=== PATIENT | male | born 1970 | race Hispanic/Latino ===

== ENCOUNTER 2018-01-03 22:55 | Inpatient (IN) | payer MEDICARE ==
[2018-01-04] MEDS ORDERED: Ondansetron HCl/PF 4 MG/2 ML Vial ONE (00:40)
[2018-01-04 00:52] LABS: #Eosinphils 0.2 thou/uL (0.0-0.7); #Lymphocytes 1.3 thou/uL (1.20-3.40); #Monocytes 0.6 thou/uL (0.11-0.59); #Neutrophils 9.1 thou/uL (1.40-6.50); %Basophils 0.4 % (0.0-1.0); %Eosinophils 1.7 % (0.0-10.0); %Lymphocytes 11.8 % (21.0-51.0); %Monocytes 5.4 % (0.0-10.0); %Neutrophils 80.8 % (42.0-75.0); Hemoglobin 17.9 g/dL (14.0-18.0); Mean Corpuscular HGB CONC 33.8 g/dL (32.0-36.0); Mean Corpuscular Hemoglobin 31.2 pg (27.0-31.0); Mean Corpuscular Volume 92.3 fl (80.0-94.0); Mean Platelet Volume 8.3 fL (7.4-10.4); Platelet Count 123 thou/uL (130-400); Red Blood Cell (RBC) Count 5.75 mill/uL (4.70-6.10); White Blood Cell (WBC) Count 11.3 thou/uL (4.8-10.8)
[2018-01-04 01:00] LABS: ALT (SGPT) 41 U/L (8-55); AST (SGOT) 28 U/L (5-34); Albumin 3.5 g/dL (3.5-5.0); Alkaline Phosphatase 80 U/L (40-150); Anion Gap 14 mmol/L (10-20); BUN (Urea Nitrogen) 26 mg/dL (8.9-20.6); Bilirubin, Total 0.4 mg/dL (0.2-1.2); Calc. Creatinine Clearance 0 mL/min (70-130); Calcium 9.5 mg/dL (7.8-10.44); Carbon Dioxide 23 mmol/L (22-29); Chloride 99 mmol/L (98-107); Estimated GFR-MDRD 46; Globulin 4.7 g/dL (2.4-3.5); Glucose 416 mg/dL (70-105); Lipase 70 U/L (8-78); Potassium 4.2 mmol/L (3.5-5.1); Protein, Total 8.2 g/dL (6.0-8.3); Sodium 132 mmol/L (136-145)
[2018-01-04 01:03] LABS: Bilirubin Negative (Negative); Blood, Urine Large (Negative); Clarity CLOUDY (Clear); Glucose, Urine (Dipstick) >=1000 mg/dL (Negative); Leukocyte Moderate (Negative); Nitrite Negative (Negative); Protein, Urine (Dipstick) 100 mg/dL (Neg-Trace); Specific Gravity, Urine 1.017 (1.002-1.036); Urobilinogen 0.2 mg/dL (0.2-1.0); pH, Urine 6.5 (5.0-9.0)
[2018-01-04 01:06] LABS: Bacteria/HPF 4+ HPF (None Seen); Hyaline Casts/LPF 0-3 HYALINE CAST LPF (0-3 Hyaline); RBC/HPF GREATER THAN 50-TNTC HPF (0-3); Squamous Epithelial None Seen HPF (0-3)
[2018-01-04] MEDS ORDERED: cefTRIAXone\\ROCEPHIN 2 GM in Sodium Chloride 0.9% 100 ML IVPB SCH (01:45)
[2018-01-04] MEDS: Sodium Chloride 0.9% 1,000 ML IV SCH (03:30)
[2018-01-04] MEDS ORDERED: Ondansetron HCl/PF 4 MG/2 ML Vial IVP PRN (04:20)
[2018-01-04] MEDS ORDERED: Ondansetron ODT 4 MG TAB SL PRN (04:20)
[2018-01-04 06:02] VITALS: BMI 53.3
--- NOTE | 2018-01-04 08:17 | CT ---
PRELIMINARY REPORT/[facility]/EMERGENCY AFTER HOURS PROCEDURE: EXAM: CT Abdomen and Pelvis With Intravenous Contrast EXAM DATE/TIME: Exam ordered 01/04/2018 12:59 AM CLINICAL HISTORY: 47 years old, male; Pain; Abdominal pain; Generalized TECHNIQUE: Axial computed tomography images of the abdomen and pelvis with intravenous contrast. Coronal reformatted images were created and reviewed. CONTRAST: 100 mL of ISOVUE administered intravenously. COMPARISON: No relevant prior studies available. FINDINGS: Artifacts: Study limited by artifact created from direct apposition of a large body habitus directly against the gantry on the CT scanner. Lower thorax: Cardiomegaly. Cardiac device in place. ABDOMEN: Liver: Hepatomegaly. Gallbladder and bile ducts: Prior cholecystectomy. No ductal dilation. Pancreas: Unremarkable. No mass. No ductal dilation. Spleen: Splenomegaly. Adrenals: Unremarkable. No mass. Kidneys and ureters: 2 mm obstructing stone at the left UVJ causing mild obstructive uropathy. 2 cm r ound low attenuation lesion in the right kidney is indeterminate. Attenuation coefficient unreliable due to scanning related to large body habitus against the gantry. This is probably a cyst but is inde terminate. Stomach and bowel: Unremarkable. No obstruction. No mucosal thickening. Appendix: Normal appendix. PELVIS: Bladder: Unremarkable. No mass. Reproductive: Unremarkable as visualized. ABDOMEN and PELVIS: Intraperitoneal space: Unremarkable. No free air. No significant fluid collection. Bones/joints: No acute fracture. No dislocation. Soft tissues: Distal right iliopsoas intramuscular lipoma. Fat containing umbilical hernia. Vasculature: Unremarkable. No abdominal aortic aneurysm. Lymph nodes: Unremarkable. No enlarged lymph nodes. IMPRESSION: 1. 2 mm obstructing stone at the left UVJ causing mild obstructive uropathy. 2. Hepatomegaly. 3. Splenomegaly. Thank you for allowing us to participate in the care of your patient. Dictated and Authenticated by: Yasmani Edwards MD 01/04/2018 1:36 AM Central Time ([place] & [place]) FINAL REPORT ABDOMEN CT WITH CONTRAST PELVIC CT WITH CONTRAST: Date: 01/04/18 HISTORY: Abdominal pain. COMPARISON: None. TECHNIQUE: Abdomen and pelvic CT performed with IV contrast. Enteric contrast not administered. Coronal reformat karie images submitted for interpretation. FINDINGS/IMPRESSION: This report is in agreement with the preliminary report by [facility]. There is mild left-sided obstructive uropathy secondary to a 2.0 mm calculus in the left ureterovesical junction. Additional nonobstructi ng calculus in the left intrarenal collecting system noted. There is an indeterminate lesion in the r ight kidney. Nonemergent right renal ultrasound. Ventral abdominal wall hernia containing mesenteric fat is noted. Normal caliber appendix is identified. POS: [facility]
[2018-01-04] MEDS ORDERED: Dextrose 50% Abboject 50 ML SYRINGE SLOW IVP PRN (08:21)
[2018-01-04] MEDS ORDERED: Dextrose 5% in Water 1,000 ML IV PRN (08:21)
[2018-01-04] MEDS ORDERED: Prevnar 13-Val Conj/PF 0.5 ML SYRINGE IM ONE (09:00)
[2018-01-04] MEDS ORDERED: FLU VACC QS2017-18 36 mo. & older 0.5 ML SYRINGE IM ONE (09:00)
--- NOTE | 2018-01-04 09:09 | RAD ---
TWO VIEWS OF THE CHEST: DATE: 01/04/18. COMPARISON: 11/22/16. HISTORY: Cardiomyopathy. FINDINGS: Stable prominence of the cardiac silhouette. A single-lead AICD inserted via subclavian approach not ed. No pneumothorax, pleural fluid, focal consolidation, or alveolar edema. IMPRESSION: No acute findings. POS: [facility]
[2018-01-04] MEDS: Carvedilol 25 MG TAB PO SCH ×2 (09:25→20:18)
[2018-01-04] MEDS: Insulin Detemir 100 UNITS/ML 10 UNITS in Pre-Filled Syringe 1 EACH SC SCH (09:26)
[2018-01-04] MEDS: Lisinopril 20 MG TAB PO SCH ×2 (09:26→20:17)
[2018-01-04] MEDS: hydrALAZINE 25 MG TAB PO SCH ×2 (09:26→20:18)
[2018-01-04] MEDS: Spironolactone 25 MG TAB PO SCH ×2 (09:27→20:19)
--- NOTE | 2018-01-04 09:36 | ULT ---
LEFT LOWER EXTREMITY VENOUS ULTRASOUND WITH DOPPLER: HISTORY: Previous DVT noted. COMPARISON: 11/22/16. TECHNIQUE: Contreras scale, color flow, Doppler imaging, with spectral waveform analysis is performed of the left low er extremity venous system. FINDINGS: There is compressibility, presence of flow, and augmentation of the common femoral vein, proximal mid femoral vein, and posterior tibial vein. Here is flow in the greater saphenous vein and profunda ve in. There is incomplete compression with evidence of partial flow in the distal femoral vein. IMPRESSION: Partial thrombus is still present in the distal left femoral vein. POS: [facility]
--- NOTE | 2018-01-04 11:41 | HP ---
DATE OF ADMISSION: 01/04/2018 PRIMARY CARE PHYSICIAN: Dr. Peterson Morales CHIEF COMPLAINT: Abdomen pain. HISTORY OF PRESENT ILLNESS: The patient presented to the emergency department for left-sided abdominal pain that started 2-3 days ago with associated nausea; however, no vomiting or diarrhea. Denies fevers, denies blood in urine or stool. Denies overt lower urinary symptoms. The patient is currently on Zaroxolyn for a recent left lower extremity DVT found approximately 2 months ago in November. The patient has known systolic heart failure with AICD in place. No shocks reported. He is a type 2 diabetic on insulin without derangement of blood sugars reported. REVIEW OF SYSTEMS: No fevers, no chills, no cough, no congestion. Positive shortness of breath, no chest pain. Positive for abdomen pain. Positive nausea. Positive history of DVT. Reports a skin breakdown. No polydipsia or polyuria. No headache. ALLERGIES: No known drug allergies. VITAL SIGNS: In the emergency department, blood pressure 152/92, pulse 78, respiratory rate of 18, oxygen saturation of 89% on 2 liters nasal cannula, which has improved to 94%. PAST MEDICAL HISTORY: Includes hypertension, morbidly obese, type 2 diabetes, hyperlipidemia, sleep apnea, systolic heart failure with AICD present, chronic kidney disease stage 3, ischemic cardiomyopathy, DVT to left lower extremity. HOME MEDICATIONS: Gemfibrozil 600 mg, glipizide 10 mg, baby aspirin 81 mg, furosemide 40 mg b.i.d., Klor-Con 20 mEq once daily, hydralazine 25 mg twice daily, spironolactone 25 mg twice daily, Xarelto 15 mg twice daily, carvedilol 25 mg b.i.d. 2 tabs each, lisinopril 40 mg 1 tab b.i.d., hydralazine is corrected to be 50 mg currently, Levemir once daily, isosorbide mononitrate 60 mg twice daily. PAST SURGICAL HISTORY: Prior cholecystectomy, prior AICD placement. SOCIAL HISTORY: Prior history of tobacco use 1 pack per day up to 25 years. PHYSICAL EXAMINATION: GENERAL: The patient is alert and oriented, in no acute distress. HEENT: Head is normocephalic, atraumatic. Extraocular movements are intact. Nasal cannula in place. NECK: Supple. HEART: Regular rate and rhythm. LUNGS: Clear to auscultation bilaterally, no wheezes or crackles. ABDOMEN: Soft, nondistended. Generalized tenderness to left quadrants without rebound or guarding. EXTREMITIES: Lower extremities with 3+ pitting edema and hyperpigmentation of shins bilaterally consistent with venous stasis NEURO: Patient alert and oriented. No focal deficits. Speech is normal. LABORATORY WORK: Review of lab work and imaging; abdomen CT shows obstructing 2 mm renal calculi to the left side. Chest x-ray is pending. White blood cell count of 11.3, platelet count of 123, hemoglobin of 17.9. Sodium of 132, potassium of 4.2, CO2 of 23, creatinine of 1.61, slightly elevated from the patient's recent baseline, glucose of 416, AST of 20, ALT of 41. BNP of 150, albumin 3.5, lipase 70. Urine specific gravity 1.01, protein 100, glucose greater than 1000, ketones negative, large blood, negative nitrites , moderate leukocyte esterase, too numerous to count red blood cells, too numerous to count white blood cells, positive bacteria, no casts seen. Urine culture is pending. ASSESSMENT AND PLAN: 1. Urinary tract infection with obstructing renal calculi of left side. 2. Diabetes type 2 on insulin. 3. Chronic kidney disease stage 3. 4. Systolic heart failure, AICD in place. 5. Left lower extremity deep venous thrombosis. 6. Hypertension. Dr. Ricardo Morales was consulted from emergency department. We will follow up on his recommendations today. Continuing Rocephin at this point in time, following up on culture. Transition the patient from furosemide to light IV fluids to aid with acute on chronic kidney injury, holding anticoagulants at this point in time and aspirin in case any procedures are warranted. Goal to restart anticoagulant within 24 hours of admit if no urologic intervention. Follow up on left lower extremity ultrasound for status of current DVT found approximately 2 months ago. Continue the patient's blood pressure medications otherwise. While the patient is n.p.o. may cover with IV PRNS if the patient's blood glucose is elevated significantly. We will trend blood sugars and treat accordingly. The patient is currently n.p.o. Continue the patient's Imdur, beta chaz, spironolactone regarding congestive heart failure history. Pt takes prn home oxygen and we will maintain above 90% while inpt. MTDD
[2018-01-04] MEDS ORDERED: ISOVUE-370 76%-LOCM 1 ML ONE (14:24)
[2018-01-04 14:31] LABS: Anion Gap 10 mmol/L (10-20); BUN (Urea Nitrogen) 23 mg/dL (8.9-20.6); Calc. Creatinine Clearance 145 mL/min (70-130); Calcium 8.8 mg/dL (7.8-10.44); Carbon Dioxide 25 mmol/L (22-29); Chloride 105 mmol/L (98-107); Estimated GFR-MDRD 52; Glucose 279 mg/dL (70-105); Potassium 4.2 mmol/L (3.5-5.1); Sodium 136 mmol/L (136-145)
[2018-01-04] MEDS: HumaLOG 300 UNITS/3 ML VIAL SC PRN (20:19)
[2018-01-04] MEDS: Rivaroxaban 15 MG TAB PO SCH (20:19)
[2018-01-04] MEDS ORDERED: Insulin Detemir 100 UNITS/ML 10 UNITS in Pre-Filled Syringe 1 EACH SC SCH (21:00)
--- NOTE | 2018-01-04 22:44 | CON ---
DATE OF CONSULTATION: 01/04/2018 CONSULTING: Emergency Room. CONSULTED PHYSICIAN: Ricardo Morales M.D. REASON FOR CONSULTATION: Urinary tract infection with distal left ureteral stone. HISTORY OF PRESENT ILLNESS: Mr. Avila is a 47-year-old male with type 2 diabetes, who presented to the emergency room with a several hour history of severe left-sided flank pain. He did not report any fevers, but did have some nausea without vomiting, the flank pain was sharp and stabbing 10/10, radiating down towards the left groin. He came into the emergency room, where he underwent a workup including CT scan with labs, which demonstrated a 2 mm stone in the ureterovesical junction with mild hydronephrosis. Laboratory evaluation demonstrated 4+ bacteria in the urine without squamous cells, but nitrite negative. The patient has slightly elevated white count to 11,000 and significantly elevated blood sugar over 400. There was concern about a possible urinary tract infection; therefore, he was admitted to the Hospitalist Service with IV antibiotics given via Rocephin and consultation to me for intervention. At the time of my arrival to see the patient initially, he had been downstairs for a lower extremity Doppler study as the patient does have a history of left-sided DVT and has been on anticoagulation. I came to see him again in the afternoon and he reports that he has passed his stone. He states his pain is now 0/10. He feels fine, he has no difficulty urinating and has absolutely no pain. He feels very good. He has not had any fevers or chills, nausea, or vomiting. He states he has no history of kidney stones. He does not normally have any urinary difficulties. He does report a history of urinary tract infections with several severe infections. He has no previous urologic surgeries. ALLERGIES: None. HOME MEDICATIONS: 1. Gemfibrozil. 2. Glipizide. 3. Baby aspirin. 4. Lasix. 5. Klor-Con. 6. Hydralazine. 7. Spironolactone. 8. Xarelto. 9. Carvedilol. 10. Lisinopril. 11. Hydralazine. 12. Levemir. 13. Isosorbide mononitrate. PAST MEDICAL HISTORY: 1. Hypertension. 2. Morbid obesity. 3. Type 2 diabetes. 4. Hyperlipidemia. 5. Sleep apnea. 6. Systolic heart failure. 7. Chronic kidney disease. 8. Ischemic cardiomyopathy. 9. Deep venous thrombosis of the left lower extremity. PAST SURGICAL HISTORY: 1. Cholecystectomy. 2. AICD placement. SOCIAL HISTORY: The patient smokes 1 pack of cigarettes per day and has been doing so for 25 years. Denies alcohol abuse or illicit drug use. FAMILY HISTORY: Noncontributory for nephrolithiasis. REVIEW OF SYSTEMS: A 12 point review of systems is currently completely negative. All pertinent points were reported in the HPI and the patient is currently just reporting hunger and thirst, but otherwise has no other complaints. PHYSICAL EXAMINATION: VITAL SIGNS: Current vitals temperature 98.3, pulse 73, respirations 18, blood pressure 124/78, saturation 90% on 2 liters nasal cannula. Pain 0/10. GENERAL: No apparent distress, lying on his side in the bed, comfortable, morbidly obese. HEENT: Normocephalic, atraumatic. Sclerae are nonicteric. Pupils are symmetric and round. Slightly dry mucous membranes. Nasal cannula in place. Trachea midline. CARDIOVASCULAR: Regular rate and rhythm. Normal S1 and S2. CHEST: No increased work of breathing. Symmetric expansion of lungs. AICD defibrillator noted. Clear anteriorly. ABDOMEN: Soft, nontender, nondistended, positive bowel sounds, extremely protuberant and obese. No CVA tenderness. No organomegaly, although exam is difficult, given the patient's size. GENITOURINARY: Deferred at this time. EXTREMITIES: Mild clubbing. Lower extremity cyanosis, 3+ edema on the left lower extremity, 1+ edema in the right lower extremity with stasis dermatitis present. SKIN: Warm, dry, a previously noted stasis dermatitis in the lower extremities. No other rashes or lesions noted. MUSCULOSKELETAL: No joint deformities or joint erythema noted. A full range of motion. No inflammation in the hands. NEUROLOGIC: Cranial nerves II-XII grossly intact. No focal or sensory motor deficits identified. PSYCHIATRIC: Alert and oriented x3, appropriate mood and affect. LABORATORY AND X-RAY FINDINGS: The full set of labs are in the [facility] system , which I have reviewed. Of note, the patient's white count is 11.3 with a hemoglobin of 17.9, sodium was initially decreased to 132 and is now currently 136. Creatinine has reduced from 1.61 down to 1.47. Blood sugar was previously 416 is not 279. Urinalysis demonstrates greater than 1000 sugar, 100 protein, moderate leukocyte esterase, greater than 50 RBCs, greater than 50 WBCs, 4+ bacteria, no squamous cells. Urine culture is apparently pending, but there is nothing visible in the record at this time. The patient does have reports of E. coli in his urine from 2016 and again in [address] with Conrast: Pt has a 2 mm distal left ureteral stone with mild hydronephrosis. There is another 9 mm stone in the left kidney in the lower pole which is non-obstructing. ASSESSMENT AND PLAN: A 47-year-old male with first time 2 mm ureteral stone on the left, which he has now passed on his own. He does have a urinary tract infection again, which he has had in the past. It is extremely likely that given his lack of current urinary difficulties, his UTIs are occurring due to his extremely poorly controlled diabetes, which likely is lowering his immunity and is making susceptible to infections. Primary treatment and reduction of risk for urinary tract infections would be better management of his blood sugars as far as nephrolithiasis goes no further intervention is necessary at this time, as the patient has already passed the stone. He does need a metabolic evaluation since he has 2 stones currently and would be at risk for further stone disease. I would recommend continuation of treatment with antibiotics for 7 days for a complicated urinary tract infection in a male. From my standpoint, he can be discharged whenever deemed necessary by the primary team. Follow up is recommended with Urology whenever he wants to schedule an appt, but he also does need to follow up with his primary care doctor or an angular developer for tighter glycemic control and better management of his diabetes. The patient may also benefit from a weight loss referral to [facility] as well. I will sign off as there is nothing for me to do at this time. GISELLE
[2018-01-05] MEDS ORDERED: cefTRIAXone\\ROCEPHIN 2 GM in Sodium Chloride 0.9% 100 ML IVPB SCH (02:00)
[2018-01-05] MEDS: HumaLOG 300 UNITS/3 ML VIAL SC PRN ×2 (05:20→12:16)
[2018-01-05 06:04] LABS: #Eosinphils 0.2 thou/uL (0.0-0.7); #Lymphocytes 1.5 thou/uL (1.20-3.40); #Monocytes 0.6 thou/uL (0.11-0.59); #Neutrophils 4.7 thou/uL (1.40-6.50); %Basophils 0.1 % (0.0-1.0); %Eosinophils 2.9 % (0.0-10.0); %Lymphocytes 21.6 % (21.0-51.0); %Monocytes 8.7 % (0.0-10.0); %Neutrophils 66.7 % (42.0-75.0); Hemoglobin 15.6 g/dL (14.0-18.0); Mean Corpuscular HGB CONC 32.8 g/dL (32.0-36.0); Mean Corpuscular Hemoglobin 31.6 pg (27.0-31.0); Mean Corpuscular Volume 96.3 fl (80.0-94.0); Mean Platelet Volume 8.9 fL (7.4-10.4); PLT Morphology Comment Appears Decreased; Platelet Count 106 thou/uL (130-400); RBC Morphology Normal; Red Blood Cell (RBC) Count 4.94 mill/uL (4.70-6.10)
[2018-01-05 06:24] LABS: Anion Gap 10 mmol/L (10-20); BUN (Urea Nitrogen) 22 mg/dL (8.9-20.6); Calc. Creatinine Clearance 141 mL/min (70-130); Calcium 8.3 mg/dL (7.8-10.44); Carbon Dioxide 25 mmol/L (22-29); Chloride 101 mmol/L (98-107); Estimated GFR-MDRD 50; Glucose 357 mg/dL (70-105); Potassium 4.1 mmol/L (3.5-5.1); Sodium 132 mmol/L (136-145)
--- NOTE | 2018-01-05 08:07 | EKG ---
Test Reason : Blood Pressure : / mmHG Vent. Rate : 083 BPM Atrial Rate : 083 BPM P-R Int : 180 ms QRS Dur : 150 ms QT Int : 414 ms P-R-T Axes : 030 -65 073 degrees QTc Int : 486 ms Normal sinus rhythm Left bundle branch block Abnormal ECG When compared with ECG of 10-JUN-2014 16:14, IA interval has decreased QT has lengthened Confirmed by DR. Sadi BONNER ([id number]) on 01/05/2018 8:07:04 AM Referred By: NILTON Confirmed By:DR. Sadi BONNER
[2018-01-05] MEDS: Rivaroxaban 15 MG TAB PO SCH (08:19)
[2018-01-05] MEDS: Spironolactone 25 MG TAB PO SCH (08:19)
[2018-01-05] MEDS: Insulin Detemir 100 UNITS/ML 10 UNITS in Pre-Filled Syringe 1 EACH SC SCH (08:20)
[2018-01-05] MEDS: Sodium Chloride 0.9% 1,000 ML IV SCH (08:54)
[2018-01-05] MEDS: hydrALAZINE 25 MG TAB PO SCH (09:00)
[2018-01-05] MEDS: Lisinopril 20 MG TAB PO SCH (09:00)
[2018-01-05] MEDS: Carvedilol 25 MG TAB PO SCH (09:00)
[2018-01-05 12:00] VITALS: BP 113/75; TEMP 98.3
--- NOTE | 2018-01-05 12:18 | DIS ---
DATE OF ADMISSION: 01/04/2018 DATE OF DISCHARGE: 01/05/2018 ADMITTING DIAGNOSES: Renal calculus and hemorrhagic cystitis. DISCHARGE DIAGNOSES: Renal calculus and hemorrhagic cystitis with uncontrolled diabetes, hypertensio n, hyperlipidemia, morbid obesity, sleep apnea, automatic implantable cardioverter-defibrillator in christian garcia, ischemic cardiomyopathy, chronic deep venous thrombosis lower extremity and diabetic renal insu fficiency. CONSULTS: Dr. Morales from Urology. HOSPITAL COURSE: The patient is a 47-year-old [place] male patient of Dr. Morales's who was admitted by Dr. Evans refrigeration brazer/solderer for abdominal pain and left-sided flank pain radiating to the groin. Upon arrival in the hospital, he was found he had passed a stone was here, but he had alexander hematur ia and started to develop fever. He was found to have infection in the urine, the organism was not i solated. He was started on Rocephin and IV fluids. Dr. Morales stated that since he had cleared his one stone, he still has one retained higher up in the kidney, but it is not causing problems, so he does not need to have any interventions at this time and he is going to continue his antibiotics for another week after discharge. So, the plan is for him to discharge home on cefdinir 300 mg twice a d ay and resume the rest of his meds and be more aggressive on controlling his sugar intake for his evonne betes. The patient acknowledges the need to get a better hold on his sugar intake and he will follow up with Dr. Morales later this week.
== END 2018-01-05 14:51 | disposition home or self-care (01) | DRG 690 ==
LOC: ERS 22:55 → T4-A 01-04 03:23
PROVIDERS: ADMIT Family Medicine; ATTEND Family Medicine
DX: N30.91 Cystitis, unspecified with hematuria (principal); E11.22 Type 2 diabetes mellitus with diabetic chronic kidney disease; N17.9 Acute kidney failure, unspecified; I50.22 Chronic systolic (congestive) heart failure; I13.0 Hypertensive heart and chronic kidney disease with heart failure and stage 1 through stage 4 chronic kidney disease, or unspecified chronic kidney disease; N18.3 Chronic kidney disease, stage 3 (moderate); E11.65 Type 2 diabetes mellitus with hyperglycemia; Z68.43 Body mass index [BMI] 50.0-59.9, adult; N13.6 Pyonephrosis; E66.01 Morbid (severe) obesity due to excess calories; Z86.718 Personal history of other venous thrombosis and embolism; Z79.01 Long term (current) use of anticoagulants; Z95.810 Presence of automatic (implantable) cardiac defibrillator; E78.5 Hyperlipidemia, unspecified; G47.30 Sleep apnea, unspecified; I25.5 Ischemic cardiomyopathy; Z79.82 Long term (current) use of aspirin; Z99.81 Dependence on supplemental oxygen; Z79.84 Long term (current) use of oral hypoglycemic drugs; F17.210 Nicotine dependence, cigarettes, uncomplicated
CPT/HCPCS: 36415; 36416; 71046; 74177; 80048; 80053; 81003; 81015; 83690; 83880; 85025; 87077; 87086; 87186; 90471; 90670; 93005; 93010; 93290; 96365; 96375; 96376; 99214; G0009; G0463; J0696; J1815; J2270; J2405; J7050

== ENCOUNTER 2018-01-06 08:54 | Emergency (ER) | payer MEDICARE ==
[2018-01-06] MEDS ORDERED: diphenhydrAMINE 50 MG/ML VIAL ONE (09:14)
[2018-01-06] MEDS ORDERED: Water For Inject, Bacteriostat 30 ML ONE (09:14)
[2018-01-06] MEDS ORDERED: Famotidine/PF 20 mg/2ml Vial ONE (09:14)
[2018-01-06] MEDS ORDERED: methylPREDNISolone Sod Succ/PF 125 MG/2 ML VIAL ONE (09:14)
[2018-01-06 09:54] LABS: #Eosinphils 0.2 thou/uL (0.0-0.7); #Lymphocytes 1.4 thou/uL (1.20-3.40); #Monocytes 0.6 thou/uL (0.11-0.59); #Neutrophils 6.1 thou/uL (1.40-6.50); %Basophils 0.2 % (0.0-1.0); %Eosinophils 2.4 % (0.0-10.0); %Monocytes 7.1 % (0.0-10.0); %Neutrophils 73.3 % (42.0-75.0); Hemoglobin 17.2 g/dL (14.0-18.0); Mean Corpuscular HGB CONC 33.6 g/dL (32.0-36.0); Mean Corpuscular Hemoglobin 31.2 pg (27.0-31.0); Mean Corpuscular Volume 92.9 fl (80.0-94.0); Mean Platelet Volume 8.3 fL (7.4-10.4); Platelet Count 122 thou/uL (130-400); RBC Distribution Width 11.9 % (11.5-14.5); Red Blood Cell (RBC) Count 5.52 mill/uL (4.70-6.10); White Blood Cell (WBC) Count 8.3 thou/uL (4.8-10.8)
[2018-01-06 10:05] LABS: ALT (SGPT) 20 U/L (8-55); AST (SGOT) 14 U/L (5-34); Albumin 3.3 g/dL (3.5-5.0); Alkaline Phosphatase 63 U/L (40-150); Anion Gap 12 mmol/L (10-20); BUN (Urea Nitrogen) 18 mg/dL (8.9-20.6); Bilirubin, Total 0.7 mg/dL (0.2-1.2); Calc. Creatinine Clearance 0 mL/min (70-130); Calcium 9.1 mg/dL (7.8-10.44); Carbon Dioxide 24 mmol/L (22-29); Chloride 100 mmol/L (98-107); Estimated GFR-MDRD 53; Globulin 4.6 g/dL (2.4-3.5); Glucose 286 mg/dL (70-105); Potassium 4.4 mmol/L (3.5-5.1); Protein, Total 7.9 g/dL (6.0-8.3); Sodium 132 mmol/L (136-145)
== END 2018-01-06 11:30 | disposition home or self-care (01) ==
LOC: ERS 08:54
DX: J02.9 Acute pharyngitis, unspecified (principal); Z86.718 Personal history of other venous thrombosis and embolism; G47.30 Sleep apnea, unspecified; I50.9 Heart failure, unspecified; E11.9 Type 2 diabetes mellitus without complications; I10 Essential (primary) hypertension; F17.210 Nicotine dependence, cigarettes, uncomplicated; Z79.899 Other long term (current) drug therapy; Z79.82 Long term (current) use of aspirin; Z79.01 Long term (current) use of anticoagulants
CPT/HCPCS: 80053; 85025; 87081; 87430; 96361; 96374; 96375; 99406; J1200; J2930; S0028

== ENCOUNTER 2018-10-06 19:12 | Inpatient (IN) | payer MEDICARE ==
[2018-10-06] MEDS ORDERED: Acetaminophen 325 MG Suppository ONE (22:34)
[2018-10-06] MEDS ORDERED: Morphine 2 MG/ML SYRINGE ONE (22:34)
[2018-10-06] MEDS ORDERED: Promethazine HCl 25 MG/ML VIAL ONE (22:34)
[2018-10-06] MEDS ORDERED: Clindamycin/D5W 900 mg/50 ml Premix Bag ONE ×2 (22:34→23:51)
[2018-10-06 22:48] LABS: #Eosinphils 0.2 thou/uL (0.0-0.7); #Lymphocytes 1.6 thou/uL (1.20-3.40); #Monocytes 0.7 thou/uL (0.11-0.59); #Neutrophils 9.5 thou/uL (1.40-6.50); %Basophils 0.2 % (0.0-1.0); %Eosinophils 1.7 % (0.0-10.0); %Lymphocytes 13.3 % (21.0-51.0); %Monocytes 6.1 % (0.0-10.0); %Neutrophils 78.8 % (42.0-75.0); Hemoglobin 15.1 g/dL (14.0-18.0); Mean Corpuscular HGB CONC 33.6 g/dL (32.0-36.0); Mean Corpuscular Hemoglobin 31.5 pg (27.0-31.0); Mean Corpuscular Volume 93.8 fL (78.0-98.0); Mean Platelet Volume 8.5 fL (7.4-10.4); Platelet Count 127 thou/uL (130-400); RBC Distribution Width 12.1 % (11.5-14.5); White Blood Cell (WBC) Count 12.1 thou/uL (4.8-10.8)
[2018-10-06 23:07] LABS: ALT (SGPT) 10 U/L (8-55); AST (SGOT) 11 U/L (5-34); Albumin 3.3 g/dL (3.5-5.0); Alkaline Phosphatase 60 U/L (40-150); Anion Gap 13 mmol/L (10-20); BUN (Urea Nitrogen) 25 mg/dL (8.9-20.6); Bilirubin, Total 0.7 mg/dL (0.2-1.2); CRP (Inflammatory) 19.03 mg/dL (= or < 0.5); Calc. Creatinine Clearance 0 mL/min (70-130); Calcium 9.1 mg/dL (7.8-10.44); Carbon Dioxide 26 mmol/L (22-29); Chloride 98 mmol/L (98-107); Estimated GFR-MDRD 34; Globulin 4.8 g/dL (2.4-3.5); Glucose 274 mg/dL (70-105); Potassium 4.2 mmol/L (3.5-5.1); Protein, Total 8.1 g/dL (6.0-8.3); Sodium 133 mmol/L (136-145)
--- NOTE | 2018-10-06 23:46 | CT ---
CT ABDOMEN AND PELVIS WITH CONTRAST: Comparison: 01-04-18 History: Boil in the suprapubic region for three days. Abdominal pain. Technique: Multiple contiguous axial images were obtained in a CT of the abdomen and pelvis with cont rast. Coronal reformats were performed. FINDINGS: The patient is status post cholecystectomy. The liver, right kidney, adrenal glands, spleen, and panc reas are unremarkable. There is a nonobstructing calcification in the left kidney measuring 7-8 mm in size. No free air, free fluid, or stranding changes are seen within the abdomen or pelvis. The large and small bowel are unremarkable. No abdominal or pelvic lymphadenopathy are seen. Atherosc lerotic calcifications are seen in the aorta. Degenerative changes are seen in the spine. There is a fat containing 3.6 cm umbilical hernia. There is stranding change in the suprapubic soft tissues. This extends to the inferior aspect of the examin ation. No fluid collection is seen within this area of stranding, but the entire area is not included on this examination. A lipoma is seen within the right hip musculature. The visualized inferior thor ax is unremarkable. IMPRESSION: 1. No evidence of acute intraabdominal/pelvic abnormality. 2. Stranding change in the suprapubic soft tissues. The entire area is not definitely included, but n o fluid collection is seen within the included soft tissues. 3. Nonobstructing left renal calcification. POS: [facility]
[2018-10-06 23:53] LABS: Bilirubin Negative (Negative); Blood, Urine Trace (Negative); Clarity CLOUDY (Clear); Glucose, Urine (Dipstick) Negative (Negative); Leukocyte Moderate (Negative); Nitrite Negative (Negative); Protein, Urine (Dipstick) 100 mg/dL (Neg-Trace); Specific Gravity, Urine 1.018 (1.002-1.036)
[2018-10-06 23:55] LABS: Bacteria/HPF 4+ HPF (None Seen); Squamous Epithelial 0-3 HPF (0-3)
[2018-10-07] LABS: Hyaline Casts/LPF 4-6 HYALINE CAST LPF (0-3 Hyaline); Other Casts/LPF None Seen LPF (0-3 Hyaline)
[2018-10-07] MEDS ORDERED: Piperacillin/Tazobactam 4.5 GM VIAL ONE (01:11)
[2018-10-07] MEDS ORDERED: HumaLOG 300 UNITS/3 ML VIAL SC PRN (08:01)
[2018-10-07] MEDS ORDERED: Dextrose 5% in Water 1,000 ML IV PRN (08:41)
[2018-10-07] MEDS ORDERED: Dextrose 50% Abboject 50 ML SYRINGE IVP PRN (08:41)
[2018-10-07] MEDS ORDERED: VANCOMYCIN IVPB PRN (08:56)
[2018-10-07] MEDS ORDERED: Rivaroxaban 15 MG TAB PO SCH (09:00)
[2018-10-07] MEDS ORDERED: Non-Formulary Item 1 EACH (Levemir Flexpen [Levemir Flexpen] 15 UNITS) SC SCH (09:00)
[2018-10-07] MEDS: Aspirin 81 mg Enteric Coated Tablet PO SCH (09:54)
[2018-10-07] MEDS: Lisinopril 20 MG TAB PO SCH ×2 (09:54→20:58)
[2018-10-07] MEDS ORDERED: Furosemide 40 MG TAB ONE (09:56)
[2018-10-07] MEDS: Furosemide 40 MG TAB PO SCH ×2 (09:58→20:57)
[2018-10-07] MEDS: Insulin Glargine 15 UNITS in Pre-Filled Syringe 1 EACH SC SCH (10:04)
[2018-10-07] MEDS ORDERED: Morphine 4 MG/ML VIAL SLOW IVP PRN (10:40)
[2018-10-07] MEDS ORDERED: Morphine 2 MG/ML SYRINGE ONE ×2 (10:57)
[2018-10-07] MEDS: Carvedilol 25 MG TAB PO SCH ×2 (11:05→20:57)
[2018-10-07] MEDS: hydrALAZINE 25 MG TAB PO SCH ×2 (11:05→20:58)
[2018-10-07 11:12] VITALS: BMI 56.9
[2018-10-07] MEDS ORDERED: Insulin Regular 300 UNITS/3 ML VIAL ONE (13:17)
[2018-10-07] MEDS: Rivaroxaban 15 MG TAB PO SCH (15:39)
[2018-10-07] MEDS: glipiZIDE 10 MG TAB PO SCH (16:20)
[2018-10-07] MEDS: HumaLOG 300 UNITS/3 ML VIAL SC PRN ×2 (16:24→22:14)
[2018-10-07] MEDS: Spironolactone 25 MG TAB PO SCH (17:18)
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
[2018-10-08] MEDS: Morphine 10 MG/ML VIAL SLOW IVP PRN ×2 (00:51→09:06)
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
[2018-10-08 07:06] LABS: #Eosinphils 0.3 thou/uL (0.0-0.7); #Lymphocytes 1.3 thou/uL (1.20-3.40); #Monocytes 0.7 thou/uL (0.11-0.59); #Neutrophils 6.8 thou/uL (1.40-6.50); %Basophils 0.3 % (0.0-1.0); %Eosinophils 2.8 % (0.0-10.0); %Lymphocytes 14.6 % (21.0-51.0); %Monocytes 7.6 % (0.0-10.0); %Neutrophils 74.8 % (42.0-75.0); Hemoglobin 12.2 g/dL (14.0-18.0); Mean Corpuscular Volume 93.7 fL (78.0-98.0); Platelet Count 129 thou/uL (130-400); Red Blood Cell (RBC) Count 4.05 mill/uL (4.70-6.10); White Blood Cell (WBC) Count 9.1 thou/uL (4.8-10.8)
[2018-10-08 07:30] LABS: ALT (SGPT) 7 U/L (8-55); AST (SGOT) 10 U/L (5-34); Albumin 2.7 g/dL (3.5-5.0); Alkaline Phosphatase 48 U/L (40-150); Anion Gap 10 mmol/L (10-20); BUN (Urea Nitrogen) 29 mg/dL (8.9-20.6); Bilirubin, Total 0.4 mg/dL (0.2-1.2); Calc. Creatinine Clearance 109 mL/min (70-130); Calcium 8.2 mg/dL (7.8-10.44); Carbon Dioxide 26 mmol/L (22-29); Chloride 105 mmol/L (98-107); Estimated GFR-MDRD 35; Globulin 3.9 g/dL (2.4-3.5); Glucose 202 mg/dL (70-105); Potassium 3.8 mmol/L (3.5-5.1); Protein, Total 6.6 g/dL (6.0-8.3); Sodium 137 mmol/L (136-145)
[2018-10-08] MEDS ORDERED: hydrALAZINE 25 MG TAB PO SCH (08:03)
[2018-10-08] MEDS: Insulin Glargine 15 UNITS in Pre-Filled Syringe 1 EACH SC SCH (08:47)
[2018-10-08] MEDS: Lisinopril 20 MG TAB PO SCH (09:50)
--- NOTE | 2018-10-08 10:07 | PRG ---
DATE OF SERVICE: 10/08/2018 SUBJECTIVE: The patient has had increased pain relief with the analgesia, complaints of some body aches after sleeping on the hospital bed last night. Denies fever or chills. He has recorded more oxygen especially since sleeping last night without his CPAP. Denies chest pain or shortness of breath. He has had some low blood pressures this morning. Probably more compliant with his medicines here in the hospital than at home. OBJECTIVE: VITAL SIGNS: Temperature 98.3, T-max of 99.4, pulse is 74, respirations 20, blood pressure 98/47, and pulse ox 94% on 2.5 L. GENERAL: He is awake and alert, in no acute distress. Speech is clear. NECK: Supple. HEART: Regular rate and rhythm. LUNGS: Clear, but distant. ABDOMEN: Soft and obese. Suprapubic tenderness with large abscess and erythema. LABORATORY DATA: White blood cell count down to 9100, hemoglobin and hematocrit 12.2 and 38, and platelets of 129. Sodium 137, potassium 3.8, chloride 105, CO2 of 26, BUN and creatinine 29 and 2.07, with a GFR of 35, and serum glucose 202. Accu-Cheks of 179, 182, 274, and 316. A microbiology is still pending. ASSESSMENT AND PLAN: This is a 48-year-old gentleman with uncontrolled diabetes and noncompliance, now with suprapubic abscess. 1. Suprapubic abscess. Awaiting Surgery and Urology for incision and drainage. 2. Type 2 diabetes. We will continue his insulin and other meds. May need to decrease his sliding scale since he is n.p.o. this morning. 3. Hypertension. We will put parameters on his meds and watch closely. 4. Stage 3 chronic kidney disease. We will decrease lisinopril and spironolactone. 5. Cardiomyopathy. We will continue carvedilol, but decrease due to low blood pressure. Job ID: [id number]
[2018-10-08] MEDS: Aspirin 81 mg Enteric Coated Tablet PO SCH (11:12)
[2018-10-08] MEDS: Spironolactone 25 MG TAB PO SCH ×2 (11:12→17:43)
[2018-10-08] MEDS: glipiZIDE 10 MG TAB PO SCH ×2 (11:14→19:36)
[2018-10-08] MEDS ORDERED: Bupivacaine/Epinephrine 0.25% 30 ML VIAL ONE (12:50)
[2018-10-08] MEDS ORDERED: Fentanyl 100 MCG/2 ML VIAL ONE ×2 (12:54→14:42)
[2018-10-08] MEDS ORDERED: Midazolam HCl 2 mg/2 ml Vial ONE (12:54)
--- NOTE | 2018-10-08 13:28 | PQF ---
CLINICAL DOCUMENTATION IMPROVEMENT CLARIFICATION FORM: ICD-10 Updated PLEASE DO AN ADDENDUM TO THE PROGRESS NOTE WITH ANY DOCUMENTATION UPDATES OR ADDITIONS AND CARRY THROUGH TO DC SUMMARY. THANK YOU. DATE: 10/08/18 ATTN: DR. IBARRA Please exercise your independent, professional judgment in responding to the clarification form. Clinical indicators are provided on the bottom of this form for your review Please check appropriate box(s) to clarify if the following diagnosis has been ruled in or ruled out: SEPSIS [ ] Ruled in diagnosis [ ] Continue to treat [ ] Resolved [ xx ] Ruled out diagnosis [ ] Cannot rule out diagnosis [ ] Other diagnosis [ ] Unable to determine In addition, please specify: Present on Admission (POA): [ ] Yes [ ] No [ ] Unable to determine For continuity of documentation, please document condition throughout progress notes and discharge summary. Thank You. CLINICAL INDICATORS - SIGNS / SYMPTOMS / LABS ER NOTE: "SEPSIS" WBC 12/2: 12.1 CRP 12/2: 19.03 BP 91/48 RISKS: CELLULITIS UTI TREATMENT: IV FLUIDS (ER) IV ZOSYN (ER) IV VANCOMYCIN (ER-10/08) IV CLINDAMYCIN (ER) URINE CULTURES SAP Sheet [employer] Winform Viewer (This form is maintained as a part of the permanent medical record) 2014 [employer], [employer]. All Rights Reserved CHAPARRO [email or web address] Office: [phone] GISELLE
[2018-10-08] MEDS ORDERED: traMADol HCl 50 MG TAB PO PRN (13:36)
[2018-10-08] MEDS ORDERED: Promethazine HCl 25 MG/ML VIAL SLOW IVP PRN (13:55)
[2018-10-08] MEDS ORDERED: Promethazine HCl 25 MG/ML VIAL IM PRN (13:55)
[2018-10-08] MEDS ORDERED: Ondansetron HCl/PF 4 MG/2 ML Vial IVP PRN (13:55)
[2018-10-08] MEDS ORDERED: Lidocaine 1% PF 5 ML VIAL ONE (15:52)
[2018-10-08] MEDS ORDERED: Ondansetron PF 4 MG/2 ML Vial ONE (15:52)
[2018-10-08] MEDS ORDERED: Succinylcholine Chloride 20 MG/ML 10 ml SYRINGE FS ONE (15:52)
[2018-10-08] MEDS ORDERED: Ketorolac Tromethamine 30 MG/ML VIAL ONE (15:52)
[2018-10-08] MEDS ORDERED: PROPOFOL 200 MG/20 ML VIAL ONE (15:52)
[2018-10-08] MEDS ORDERED: Dexamethasone 20 MG/5 ML VIAL ONE (15:52)
[2018-10-08] MEDS: HYDROcodone/Acetaminophen 10/325 mg Tablet PO PRN (17:31)
[2018-10-08] MEDS: Furosemide 40 MG TAB PO SCH (17:42)
[2018-10-08] MEDS: Carvedilol 25 MG TAB PO SCH ×2 (17:42→22:20)
[2018-10-08] MEDS: Potassium Chloride 20 MEQ TAB PO SCH (17:42)
[2018-10-08] MEDS: HumaLOG 300 UNITS/3 ML VIAL SC PRN (21:07)
[2018-10-09 00:16] LABS: Vancomycin, Trough 14.3 ug/mL
[2018-10-09] MEDS: HumaLOG 300 UNITS/3 ML VIAL SC PRN ×4 (06:11→21:37)
[2018-10-09] MEDS: glipiZIDE 10 MG TAB PO SCH ×2 (06:45→17:33)
[2018-10-09] MEDS: Lisinopril 20 MG TAB PO SCH (08:38)
[2018-10-09] MEDS: Aspirin 81 mg Enteric Coated Tablet PO SCH (08:42)
[2018-10-09] MEDS: Insulin Glargine 15 UNITS in Pre-Filled Syringe 1 EACH SC SCH ×2 (08:43→21:37)
[2018-10-09] MEDS: HYDROcodone/Acetaminophen 10/325 mg Tablet PO PRN ×3 (08:50→19:21)
--- NOTE | 2018-10-09 09:13 | PDOC.GSPN ---
Surgery Progress Note: Subj - Subjective Patient reports: no new complaints (Pain controlled) Surgery Progress Note: Obj - Vital signs Vital signs: Vital Signs - Most Recent Temp Pulse Resp BP Pulse Ox 97.6 F 59 L 22 H 106/70 99 10/09/18 07:17 10/09/18 07:17 18 07:17 10/09/18 08:38 10/09/18 07:17 - Physical Exam General: no distress Cardiovascular: regular rate and rhythm Respiratory: clear to auscultation Abdomen: soft, non tender, nondistended Wound: dressing clean,dry,intact Surgery Progress Note: Results - Labs Result Diagrams: 10/08/18 06:53 10/08/18 06:53 Lab results: Laboratory Results - last 24 hr 10/08/18 10/09/18 23:49 05:42 POC Glucose 365 H Vancomycin Trough 14.3 Surgery Progress Note: A/P - Problem (1) Abscess Current Visit: Yes Code(s): L02.91 - CUTANEOUS ABSCESS, UNSPECIFIED Status: Acute - Plan Plan: Start wound care, likely home tomorrow from my standpoint
[2018-10-09 09:14] LABS: #Lymphocytes 0.7 thou/uL (1.20-3.40); #Monocytes 0.6 thou/uL (0.11-0.59); #Neutrophils 7.2 thou/uL (1.40-6.50); %Basophils 0.1 % (0.0-1.0); %Eosinophils 0.1 % (0.0-10.0); %Lymphocytes 8.4 % (21.0-51.0); %Monocytes 6.4 % (0.0-10.0); %Neutrophils 85.1 % (42.0-75.0); Hemoglobin 12.7 g/dL (14.0-18.0); Mean Corpuscular Volume 93.9 fL (78.0-98.0); Mean Platelet Volume 8.1 fL (7.4-10.4); Platelet Count 156 thou/uL (130-400); RBC Distribution Width 11.8 % (11.5-14.5); Red Blood Cell (RBC) Count 4.22 mill/uL (4.70-6.10); White Blood Cell (WBC) Count 8.5 thou/uL (4.8-10.8)
[2018-10-09] MEDS: Potassium Chloride 20 MEQ TAB PO SCH (09:21)
--- NOTE | 2018-10-09 09:21 | PRG ---
DATE OF SERVICE: 10/09/2018 Postop day #1 following incision and drainage of suprapubic abscess. SUBJECTIVE: The patient is feeling much better. He has improved pain relief after I and D and with pain medications. No fevers. No chills. No nausea. No vomiting. Appetite is good. He states that he is moving around better and walking in the room. OBJECTIVE: VITAL SIGNS: Temperature 98.0, T-max of 99, heart rate 61, respirations 19 to 24, blood pressure 117/79, and pulse ox is 100% on room air. GENERAL: He is awake and alert, in no acute distress. HEENT: Mucosa is moist. NECK: Supple. HEART: Regular rate and rhythm. LUNGS: Clear. ABDOMEN: Morbidly obese, soft. Suprapubic area with continued induration. Dressing in place with discharge. Less tenderness. LABORATORY DATA: Wound culture growing gram-negative rods with beta hemolytic strep. Urine culture, presence of E coli. ASSESSMENT AND PLAN: This is a 48-year-old gentleman with uncontrolled type 2 diabetes and noncompliance, now with onset of suprapubic abscess, status post incision and drainage in the operating room. 1. Suprapubic abscess. Appreciate Surgery and Urology evaluation and incision and drainage. The patient is doing much better. Discussed wound care. He states that he has changed packing in past wounds on his own. 2. Type 2 diabetes. Increased glucose since he has a diet now. We will increase his Lantus and continue sliding scale. He has also been off his home medication of Victoza since it is not on formulary with the hospital. 3. Hypertension. He is more compliant with his medications, and he is having episodes of hypotension. We will continue to monitor closely. We have already decreased his medications. 4. Chronic kidney disease stage 3. We will recheck his labs. DISPOSITION: Home when okay with Surgery once wound culture is resulted and he is able to take care of his own wound care. Job ID: [id number]
[2018-10-09] MEDS: Furosemide 40 MG TAB PO SCH (09:22)
[2018-10-09] MEDS: Carvedilol 25 MG TAB PO SCH ×2 (09:22→21:38)
[2018-10-09] MEDS: Spironolactone 25 MG TAB PO SCH (09:22)
[2018-10-09 09:59] LABS: ALT (SGPT) 9 U/L (8-55); AST (SGOT) 12 U/L (5-34); Albumin 2.8 g/dL (3.5-5.0); Alkaline Phosphatase 58 U/L (40-150); Anion Gap 12 mmol/L (10-20); BUN (Urea Nitrogen) 32 mg/dL (8.9-20.6); Bilirubin, Total 0.2 mg/dL (0.2-1.2); Calc. Creatinine Clearance 124 mL/min (70-130); Calcium 8.5 mg/dL (7.8-10.44); Carbon Dioxide 23 mmol/L (22-29); Chloride 103 mmol/L (98-107); Estimated GFR-MDRD 40; Glucose 306 mg/dL (70-105); Potassium 4.2 mmol/L (3.5-5.1); Protein, Total 6.8 g/dL (6.0-8.3); Sodium 134 mmol/L (136-145)
[2018-10-09] MEDS: cefTRIAXone\\ROCEPHIN 1 GM in Sodium Chloride 0.9% 100 ML IVPB SCH (10:08)
[2018-10-09] MEDS: Morphine 4 MG/ML VIAL SLOW IVP PRN (14:32)
[2018-10-10] MEDS: HYDROcodone/Acetaminophen 10/325 mg Tablet PO PRN ×4 (01:14→17:45)
[2018-10-10] MEDS ORDERED: Clopidogrel Bisulfate 75 MG TAB ONE (04:53)
[2018-10-10] MEDS: glipiZIDE 10 MG TAB PO SCH ×2 (06:34→17:53)
[2018-10-10] MEDS: HumaLOG 300 UNITS/3 ML VIAL SC PRN (06:35)
[2018-10-10] MEDS: cefTRIAXone\\ROCEPHIN 1 GM in Sodium Chloride 0.9% 100 ML IVPB SCH (08:44)
[2018-10-10] MEDS: Insulin Glargine 15 UNITS in Pre-Filled Syringe 1 EACH SC SCH (08:48)
[2018-10-10] MEDS: Aspirin 81 mg Enteric Coated Tablet PO SCH (08:48)
[2018-10-10] MEDS: Furosemide 40 MG TAB PO SCH (08:51)
[2018-10-10] MEDS: Potassium Chloride 20 MEQ TAB PO SCH (08:51)
[2018-10-10] MEDS: Carvedilol 25 MG TAB PO SCH (08:51)
[2018-10-10] MEDS: Spironolactone 25 MG TAB PO SCH (08:52)
[2018-10-10] MEDS: Lisinopril 20 MG TAB PO SCH (08:52)
[2018-10-10] MEDS: Morphine 4 MG/ML VIAL SLOW IVP PRN (11:00)
--- NOTE | 2018-10-10 11:16 | PRG ---
DATE OF SERVICE: 10/10/2018 SUBJECTIVE: Mr. Avila is doing well. Dressing change yesterday was painful. OBJECTIVE: VITAL SIGNS: He is afebrile. Vital signs are stable. Wounds are dressed. Culture show beta-hemolytic strep as well as E. coli. PLAN: Could likely be discharged home. Wound really does not even have to be packed anymore. He can just keep it covered with dry gauze and tape. Bacteria looks like it is very sensitive to any antibiotics. Could just send home on Augmentin. Follow up with me in 2 weeks. He has my card. He will call my office. Job ID: [id number]
[2018-10-10 16:54] VITALS: BP 99/63; TEMP 97.5
--- NOTE | 2018-10-11 08:28 | DIS ---
DATE OF ADMISSION: 10/07/2018 DATE OF DISCHARGE: 10/10/2018 ADMISSION DIAGNOSIS: Suprapubic abscess, failed outpatient therapy. DISCHARGE DIAGNOSIS: Suprapubic abscess. CONSULTATIONS: Dr. Proctor for Surgery. PROCEDURES: I and D of abscess, IV antibiotics. HOSPITAL COURSE: This is a 48-year-old gentleman with morbid obesity, uncontrolled type 2 diabetes, coronary artery disease, cardiomyopathy, history of congestive heart failure, presented to emergency department with worsening pain and swelling in the suprapubic area. He admitted to fever and feeling weak. He presented to emergency department and was found to have a large suprapubic abscess. CT of the abdomen and pelvis did not reveal any intraabdominal abnormality, but soft tissue changes consistent with abscess. He was started on IV antibiotics including vancomycin. There was no sign of Karmen's gangrene. He was seen by Dr. Proctor, who agreed with admission and need for incision and drainage. He performed that on posthospital day #2. The patient tolerated the procedure well, had copious drainage and had packing placed at that time. Wound care was initiated. He was improving as far as how he is feeling, good pain relief with medications, and stable for discharge on the day of discharge. DISCHARGE PHYSICAL EXAMINATION: VITAL SIGNS: Temperature 97.6, T-max of 97.8, pulse of 51, respirations 20, blood pressure 101/62, and pulse ox of 93% on CPAP. GENERAL: He is awake and alert, in no acute distress. Speech is clear. NECK: Supple. HEART: Regular rate and rhythm. LUNGS: Clear. ABDOMEN: Morbidly obese with large pannus. Suprapubic area with large area of induration, no fluctuance. Dressing with drainage and packing in place. LABORATORY DATA: Urine culture is growing presumptive E. coli, bacterial culture with gram-negative joselyn and beta-hemolytic strep. Blood cultures have been negative. DISCHARGE MEDICATIONS: Include; 1. Levaquin 250 mg daily for 10 days. 2. He is to continue [place] 10 q.4 p.r.n. pain. 3. Aspirin 81 mg daily. 4. Coreg 25 mg b.i.d. 5. Lasix 40 mg daily. 6. Lantus 15 units b.i.d. 7. Imdur 60 mg b.i.d. 8. Lisinopril 20 mg daily. 9. K-Dur 20 mEq daily. 10. Spironolactone 25 mg daily. 11. Continue Victoza 1.2 mg daily. 12. Gabapentin 600 mg t.i.d. 13. Xarelto 15 mg b.i.d. 14. Simvastatin 40 mg daily. 15. Januvia 100 mg daily. FOLLOWUP INSTRUCTIONS: The patient is to follow up in my office in 1 week. Job ID: [id number]
--- NOTE | 2018-10-14 11:17 | OP ---
DATE OF PROCEDURE: 10/07/2018 PREOPERATIVE DIAGNOSIS: Suprapubic abscess. POSTOPERATIVE DIAGNOSIS: Suprapubic abscess. PROCEDURE PERFORMED: Incision and drainage of suprapubic abscess by Dr. Proctor without complication. ANESTHESIA: General. ESTIMATED BLOOD LOSS: Minimal. COMPLICATIONS: None. SPECIMEN: Cultures taken for anaerobes and aerobes. DESCRIPTION OF PROCEDURE: The patient was taken to the operating room and laid supine on the operating room table. After general anesthetic was obtained, the suprapubic area was shaved, prepped and draped in a sterile fashion. Elliptical incision was used to ellipse out some tissue over the most fluctuant part of the abscess. All loculations were broken up. Cultures were taken. The wound was irrigated. The wound was packed using iodoform gauze. The patient was sent to Recovery in stable condition. Instrument counts, needle counts and lap counts were correct. Job ID: [id number]
== END 2018-10-10 18:30 | disposition home or self-care (01) | DRG 603 ==
LOC: ERS 19:12 → ERHOLD 10-07 00:43 → 3SE 10-07 14:31 → SURG A 10-08 15:39
PROVIDERS: ADMIT Family Medicine; ATTEND Family Medicine
PROC: 0J9C0ZX Drainage of Pelvic Region Subcutaneous Tissue and Fascia, Open Approach, Diagnostic (ICD-10-PCS; principal; 2018-10-08)
DX: L02.211 Cutaneous abscess of abdominal wall (principal); I42.9 Cardiomyopathy, unspecified; I13.0 Hypertensive heart and chronic kidney disease with heart failure and stage 1 through stage 4 chronic kidney disease, or unspecified chronic kidney disease; Z68.43 Body mass index [BMI] 50.0-59.9, adult; E66.01 Morbid (severe) obesity due to excess calories; I25.10 Atherosclerotic heart disease of native coronary artery without angina pectoris; E78.5 Hyperlipidemia, unspecified; I50.9 Heart failure, unspecified; F17.210 Nicotine dependence, cigarettes, uncomplicated; E11.65 Type 2 diabetes mellitus with hyperglycemia; E11.22 Type 2 diabetes mellitus with diabetic chronic kidney disease; N18.3 Chronic kidney disease, stage 3 (moderate); Z79.01 Long term (current) use of anticoagulants; Z79.82 Long term (current) use of aspirin; Z79.4 Long term (current) use of insulin; Z95.810 Presence of automatic (implantable) cardiac defibrillator; Z90.49 Acquired absence of other specified parts of digestive tract
CPT/HCPCS: 36415; 36416; 74177; 80053; 80202; 81003; 81015; 83605; 85025; 85652; 86140; 87040; 87070; 87076; 87077; 87086; 87149; 87186; 87205; 94760; 96361; 96365; 96375; J0696; J1100; J1815; J1885; J2001; J2250; J2270; J2405; J2543; J2550; J2704; J3010; J3370; J3490; J7050

== ENCOUNTER 2019-09-24 00:50 | Emergency (ER) | payer MEDICARE, MEDICAID ==
[2019-09-24 01:32] LABS: #Eosinphils 0.3 thou/uL (0.0-0.7); #Lymphocytes 1.2 thou/uL (1.20-3.40); #Monocytes 0.6 thou/uL (0.11-0.59); #Neutrophils 5.1 thou/uL (1.40-6.50); %Basophils 0.5 % (0.0-1.0); %Eosinophils 4.1 % (0.0-10.0); %Lymphocytes 16.7 % (21.0-51.0); %Monocytes 8.2 % (0.0-10.0); %Neutrophils 70.5 % (42.0-75.0); Hemoglobin 16.2 g/dL (14.0-18.0); Mean Corpuscular HGB CONC 32.6 g/dL (32.0-36.0); Mean Corpuscular Hemoglobin 29.5 pg (27.0-31.0); Mean Corpuscular Volume 90.3 fL (78.0-98.0); Mean Platelet Volume 7.7 fL (7.4-10.4); Platelet Count 114 thou/uL (130-400); RBC Distribution Width 13.5 % (11.5-14.5); Red Blood Cell (RBC) Count 5.49 mill/uL (4.70-6.10); White Blood Cell (WBC) Count 7.2 thou/uL (4.8-10.8)
[2019-09-24 01:47] LABS: ALT (SGPT) 14 U/L (8-55); AST (SGOT) 16 U/L (5-34); Albumin 3.7 g/dL (3.5-5.0); Alkaline Phosphatase 67 U/L (40-110); Anion Gap 15 mmol/L (10-20); BUN (Urea Nitrogen) 22 mg/dL (8.9-20.6); Bilirubin, Total 0.8 mg/dL (0.2-1.2); Calc. Creatinine Clearance 0 mL/min (70-130); Calcium 9.5 mg/dL (7.8-10.44); Carbon Dioxide 27 mmol/L (22-29); Chloride 103 mmol/L (98-107); Estimated GFR-MDRD 45; Globulin 4.2 g/dL (2.4-3.5); Glucose 151 mg/dL (70-105); Protein, Total 7.9 g/dL (6.0-8.3); Sodium 141 mmol/L (136-145)
[2019-09-24] MEDS ORDERED: Dexamethasone 10 MG/ML VIAL ONE (02:08)
[2019-09-24] MEDS ORDERED: Dexamethasone 4 MG TAB ONE (02:09)
[2019-09-24 02:54] LABS: Troponin I 0.033 ng/mL (< 0.028)
--- NOTE | 2019-09-24 07:49 | RAD ---
XR Chest 1 View Portable HISTORY: Dyspnea COMPARISON: 01/04/2018 FINDINGS: The heart size is prominent but stable. Left-sided AICD remains in place The lungs are well expanded without focal areas of consolidation, pneumothorax or pleural effusions. IMPRESSION: No radiographic evidence of acute cardiopulmonary process.
== END 2019-09-24 03:46 | disposition home or self-care (01) ==
LOC: ERS 00:50
DX: J06.9 Acute upper respiratory infection, unspecified (principal); E11.9 Type 2 diabetes mellitus without complications; I11.0 Hypertensive heart disease with heart failure; I50.9 Heart failure, unspecified; G47.30 Sleep apnea, unspecified; Z79.899 Other long term (current) drug therapy
CPT/HCPCS: 36415; 71045; 80053; 83880; 84484; 85025; 85379; 93005; 94640; J1100; J7620; J8540

== ENCOUNTER 2019-12-18 18:11 | Emergency (ER) | payer MEDICARE, MEDICAID ==
[2019-12-18 18:52] LABS: #Eosinphils 0.2 thou/uL (0.0-0.7); #Lymphocytes 1.4 thou/uL (1.20-3.40); #Monocytes 0.6 thou/uL (0.11-0.59); #Neutrophils 6.1 thou/uL (1.40-6.50); %Basophils 0.4 % (0.0-1.0); %Eosinophils 2.2 % (0.0-10.0); %Monocytes 7.4 % (0.0-10.0); Hemoglobin 15.8 g/dL (14.0-18.0); Mean Corpuscular HGB CONC 32.9 g/dL (32.0-36.0); Mean Platelet Volume 8.4 fL (7.4-10.4); Platelet Count 109 thou/uL (130-400); RBC Distribution Width 13.1 % (11.5-14.5); Red Blood Cell (RBC) Count 5.28 mill/uL (4.70-6.10); White Blood Cell (WBC) Count 8.3 thou/uL (4.8-10.8)
[2019-12-18 19:01] LABS: ALT (SGPT) 9 U/L (8-55); AST (SGOT) 11 U/L (5-34); Albumin 3.6 g/dL (3.5-5.0); Alkaline Phosphatase 82 U/L (40-110); Anion Gap 14 mmol/L (10-20); BUN (Urea Nitrogen) 20 mg/dL (8.9-20.6); Bilirubin, Total 0.3 mg/dL (0.2-1.2); CK (CPK) 133 U/L (30-200); Calc. Creatinine Clearance 0 mL/min (70-130); Calcium 9.1 mg/dL (7.8-10.44); Carbon Dioxide 26 mmol/L (22-29); Chloride 106 mmol/L (98-107); Estimated GFR-MDRD 40; Globulin 3.9 g/dL (2.4-3.5); Glucose 209 mg/dL (70-105); Potassium 4.6 mmol/L (3.5-5.1); Protein, Total 7.5 g/dL (6.0-8.3); Sodium 141 mmol/L (136-145)
--- NOTE | 2019-12-18 19:01 | RAD ---
Chest AP view INDICATION: Shortness of breath COMPARISON: September 24, 2019 FINDINGS: Lungs: Low lung volumes Cardiac silhouette: Stable mild cardiomegaly Pulmonary vasculature: The accentuated by the hypoventilation. Pleural spaces: Left costophrenic angle is obscured by the overlying AICD generator. Right costophre shelli angle is sharp. Upper abdomen: No abnormality seen. Osseous structures: No acute osseous abnormality. Additional findings: Dual-lead AICD has been revised from the comparison. IMPRESSION: Low lung volumes and stable cardiomegaly. Interval revision of the left chest wall AICD
[2019-12-18 19:33] LABS: INR-International Normal Ratio 1.5; Prothrombin Time 17.6 SEC (12.0-14.7)
[2019-12-18 19:41] LABS: Bacteria/HPF 4+ HPF (None Seen); Bilirubin Negative (Negative); Blood, Urine 2+ (Negative); Clarity Clear (Clear); Glucose, Urine (Dipstick) 100 mg/dL (Negative); Leukocyte 25 Leu/uL (Negative); Nitrite 1+ (Negative); Protein, Urine (Dipstick) 50 mg/dL (Neg-Trace); RBC/HPF Greater than 50 HPF (0-3); Squamous Epithelial 0-3 HPF (0-3); Urobilinogen Normal mg/dL (Less than 2); WBC/HPF 21-50 HPF (0-3)
[2019-12-18 19:42] LABS: CKMB 2.1 ng/mL (0-6.6)
--- NOTE | 2019-12-18 19:55 | ULT ---
Doppler venous ultrasound of the left upper extremity INDICATION: History of left upper extremity swelling after pacemaker placement TECHNIQUE: Grayscale, color Doppler and spectral Doppler images were obtained of the venous structure s of the left upper extremity. FINDINGS: There is normal compression, flow and augmentation seen within the venous structures of the left upper extremity. IMPRESSION: No evidence of venous thrombosis within the left upper extremity.
[2019-12-18] MEDS ORDERED: Morphine 4 MG/ML VIAL ONE (21:10)
== END 2019-12-18 22:00 | disposition home or self-care (01) ==
LOC: ERS 18:11
DX: G89.18 Other acute postprocedural pain (principal); M79.602 Pain in left arm; N30.91 Cystitis, unspecified with hematuria; M79.89 Other specified soft tissue disorders; I11.0 Hypertensive heart disease with heart failure; I50.9 Heart failure, unspecified; E10.9 Type 1 diabetes mellitus without complications; G47.30 Sleep apnea, unspecified; Z86.718 Personal history of other venous thrombosis and embolism; F17.210 Nicotine dependence, cigarettes, uncomplicated
CPT/HCPCS: 36415; 71045; 80053; 81003; 81015; 82550; 82553; 83880; 84484; 85025; 85610; 85730; 93005; 96374; J2270

== ENCOUNTER 2020-02-09 05:39 | Day surgery (SDC) | payer MEDICARE, MEDICAID ==
[2020-02-06 10:02] VITALS: BMI 55.3
[2020-02-09] MEDS ORDERED: Propofol 500 MG/50 ML VIAL ONE (06:40)
[2020-02-09] MEDS ORDERED: Clindamycin/D5W 900 mg/50 ml Premix Bag ONE (06:57)
[2020-02-09] MEDS ORDERED: Midazolam HCl 2 mg/2 ml Vial ONE ×3 (07:04→09:53)
[2020-02-09] MEDS ORDERED: Fentanyl 100 MCG/2 ML VIAL ONE (07:04)
[2020-02-09] MEDS ORDERED: EPINEPHrine 1 MG/10 ML Abboject SYRINGE ONE (07:08)
[2020-02-09 07:27] LABS: #Eosinphils 0.2 thou/uL (0.0-0.7); #Lymphocytes 1.6 thou/uL (1.20-3.40); #Monocytes 0.5 thou/uL (0.11-0.59); #Neutrophils 5.6 thou/uL (1.40-6.50); %Basophils 0.6 % (0.0-1.0); %Eosinophils 2.6 % (0.0-10.0); %Lymphocytes 20.6 % (21.0-51.0); %Monocytes 5.8 % (0.0-10.0); %Neutrophils 70.4 % (42.0-75.0); Hemoglobin 16.7 g/dL (14.0-18.0); Mean Corpuscular HGB CONC 33.4 g/dL (32.0-36.0); Mean Corpuscular Hemoglobin 30.2 pg (27.0-31.0); Mean Corpuscular Volume 90.4 fL (78.0-98.0); Mean Platelet Volume 7.9 fL (7.4-10.4); Platelet Count 111 thou/uL (130-400); Red Blood Cell (RBC) Count 5.52 mill/uL (4.70-6.10); White Blood Cell (WBC) Count 7.9 thou/uL (4.8-10.8)
[2020-02-09] MEDS ORDERED: Ketamine 50 MG/ML (10ML VIAL) ONE (07:31)
[2020-02-09 07:32] LABS: INR-International Normal Ratio 1.1; PTT 30.2 SEC (22.9-36.1); Prothrombin Time 13.7 SEC (12.0-14.7)
[2020-02-09 07:45] LABS: Anion Gap 12 mmol/L (10-20); BUN (Urea Nitrogen) 29 mg/dL (8.9-20.6); Calc. Creatinine Clearance 121 mL/min (70-130); Calcium 9.4 mg/dL (7.8-10.44); Carbon Dioxide 25 mmol/L (22-29); Chloride 103 mmol/L (98-107); Estimated GFR-MDRD 41; Glucose 174 mg/dL (70-105); Potassium 3.9 mmol/L (3.5-5.1); Sodium 136 mmol/L (136-145)
[2020-02-09] MEDS ORDERED: Gentamicin 80 MG/2 ML VIAL ONE (08:47)
[2020-02-09] MEDS ORDERED: PROPOFOL 200 MG/20 ML VIAL ONE (08:51)
[2020-02-09] MEDS ORDERED: Ondansetron PF 4 MG/2 ML Vial ONE ×2 (08:51→08:53)
[2020-02-09] MEDS ORDERED: PROPOFOL 20 ML ONE ×2 (09:53→10:42)
[2020-02-09] MEDS ORDERED: Promethazine HCl 25 MG/ML VIAL SLOW IVP PRN (10:51)
[2020-02-09] MEDS ORDERED: Promethazine HCl 25 MG/ML VIAL IM PRN (10:51)
[2020-02-09] MEDS ORDERED: Ondansetron HCl/PF 4 MG/2 ML Vial IVP PRN (10:51)
[2020-02-09] MEDS ORDERED: Iopamidol 370 76% 50 ML VIAL FS ONE (12:57)
--- NOTE | 2020-02-09 13:27 | RAD ---
Exam: Chest one view HISTORY:Status post lead revision. Comparison: 12/18/2019 FINDINGS: Cardiac silhouette:Enlarged. Aorta: Unremarkable Pulmonary vessels: Normal Costophrenic angles: There Pacing device: Left-sided transvenous defibrillator with lead positioned in the right atrium, coronar y sinus and likely the right ventricle. Better interrogation with lead position with a 2 view chest radiograph is recommended. LUNGS: Patchy interstitial opacities. More focal opacification in the right lower lobe. Pneumothorax: None Osseous abnormalities: None IMPRESSION: 1. Patchy interstitial opacities. Right lower lobe opacity which may represent aspiration, pneumonia or atelectasis. 2. Left-sided 3-lead defibrillator as described above. Lead position is presumed to be over the regio n right atrium, right ventricle and coronary sinus. Confirmation with 2 view chest radiograph is recommended Findings conveyed to nurse Bernadette in PACU 02/09/2020 at 1:24 PM Code CR
== END 2020-02-09 17:30 | disposition home or self-care (01) ==
LOC: CCL 05:39
PROVIDERS: ATTEND Internal Medicine Cardiovascular Disease
PROC: 02PA3MZ Removal of Cardiac Lead from Heart, Percutaneous Approach (ICD-10-PCS; principal; 2020-02-09)
PROC: 02H63JZ Insertion of Pacemaker Lead into Right Atrium, Percutaneous Approach (ICD-10-PCS; 2020-02-09)
PROC: 02HL3KZ Insertion of Defibrillator Lead into Left Ventricle, Percutaneous Approach (ICD-10-PCS; 2020-02-09)
DX: T82.110A Breakdown (mechanical) of cardiac electrode, initial encounter (principal); I13.0 Hypertensive heart and chronic kidney disease with heart failure and stage 1 through stage 4 chronic kidney disease, or unspecified chronic kidney disease; E11.22 Type 2 diabetes mellitus with diabetic chronic kidney disease; N18.3 Chronic kidney disease, stage 3 (moderate); I50.22 Chronic systolic (congestive) heart failure; I42.8 Other cardiomyopathies; I25.10 Atherosclerotic heart disease of native coronary artery without angina pectoris; E66.01 Morbid (severe) obesity due to excess calories; Z68.43 Body mass index [BMI] 50.0-59.9, adult; Z86.718 Personal history of other venous thrombosis and embolism; Z79.01 Long term (current) use of anticoagulants; Z79.4 Long term (current) use of insulin; Z79.82 Long term (current) use of aspirin; Z79.899 Other long term (current) drug therapy; Z88.1 Allergy status to other antibiotic agents
CPT/HCPCS: 33216; 33224; 33244; 36005; 36415; 71045; 75820; 80048; 85025; 85610; 85730; 93005; 93010; C1769; J0171; J1580; J2250; J2405; J2704; J3010; J3490; Q9967

== ENCOUNTER 2020-07-07 07:17 | Inpatient (IN) | payer MEDICARE, MEDICAID, OTHER ==
[2020-07-07] MEDS ORDERED: Ketorolac Tromethamine 30 MG/ML VIAL ONE (07:44)
--- NOTE | 2020-07-07 08:40 | RAD ---
PORTABLE CHEST 1 VIEW: Date: 07/07/2020 Time: 0804 hours HISTORY: Right-sided chest pain. FINDINGS/IMPRESSION: Comparison made with exam of 02/09/2020. The heart size is enlarged. Left-sided AICD remains in place. There are patchy opacities in the right lung base. No pneumothoraces are seen. Findings are suspicious for pneumonia. POS: OFF
[2020-07-07 08:48] LABS: #Eosinphils 0.2 thou/uL (0.0-0.7); #Lymphocytes 1.1 thou/uL (1.20-3.40); #Monocytes 0.7 thou/uL (0.11-0.59); #Neutrophils 8.6 thou/uL (1.40-6.50); %Basophils 0.4 % (0.0-1.0); %Eosinophils 1.8 % (0.0-10.0); Mean Corpuscular HGB CONC 32.4 g/dL (32.0-36.0); Mean Corpuscular Hemoglobin 30.3 pg (27.0-31.0); Mean Corpuscular Volume 93.8 fL (78.0-98.0); Mean Platelet Volume 8.3 fL (7.4-10.4); Platelet Count 106 thou/uL (130-400); RBC Distribution Width 13.3 % (11.5-14.5); Red Blood Cell (RBC) Count 5.26 mill/uL (4.70-6.10); White Blood Cell (WBC) Count 10.7 thou/uL (4.8-10.8)
[2020-07-07 08:53] LABS: ALT (SGPT) 13 U/L (8-55); AST (SGOT) 12 U/L (5-34); Albumin 3.7 g/dL (3.5-5.0); Alkaline Phosphatase 69 U/L (40-110); Anion Gap 13 mmol/L (10-20); BUN (Urea Nitrogen) 47 mg/dL (8.9-20.6); Bilirubin, Total 0.5 mg/dL (0.2-1.2); Calc. Creatinine Clearance 0 mL/min (70-130); Calcium 9.5 mg/dL (7.8-10.44); Carbon Dioxide 23 mmol/L (22-29); Chloride 104 mmol/L (98-107); Estimated GFR-MDRD 34; Globulin 4.4 g/dL (2.4-3.5); Glucose 321 mg/dL (70-105); Potassium 4.8 mmol/L (3.5-5.1); Protein, Total 8.1 g/dL (6.0-8.3); Sodium 135 mmol/L (136-145)
[2020-07-07 09:16] LABS: CKMB 1.5 ng/mL (0-6.6)
--- NOTE | 2020-07-07 10:29 | CT ---
CT ANGIOGRAM THORAX WITH CONTRAST: (CTA pulmonary angiogram) DATE: 07/07/2020 HISTORY: 50-year-old male with dyspnea and right-sided chest pain. Dr. Mandujano reported the significant right PE by telephone to Dr. Kruger at 10:21 AM 07/07/2020 TECHNIQUE: IV injection of iodinated contrast. Scan acquisition timing attempted to coincide with iodinated contrast bolus reaching maximal density in pulmonary arteries. 3-D MIP reconstructions. FINDINGS: There is a large thrombus at the origin of the right lower lobe pulmonary artery, which fills and occ ludes all of its proximal, mid, and distal branches. The thrombus does not involve the main right pulmonary artery or the right upper lobe pulmonary artery. There is no pulmonary thromboembolism in t he pulmonic trunk, left main pulmonary artery, or the left branches. No thoracic aortic aneurysm or dissection. Atherosclerotic calcification of LAD and LCx and RCA. No pleural effusion or pneumothorax. Nonspecific mild scattered pulmonary densities. This includes ground glass pulmonary densities scatte red throughout much of the left upper lobe. No consolidation. Multiple noncalcified mildly enlarged bilateral hilar and mediastinal lymph nodes. Left subclavian AICD. Trachea and bilateral mainstem bro nchi are patent and clear. IMPRESSION: 1) positive for right-sided pulmonary thromboembolism: Large thrombus involving the entire right lowe r lobe pulmonary artery and all of its branches. 2) nonspecific mediastinal and hilar lymphadenopathy. 3) automatic implantable cardioverter-defibrillator.
[2020-07-07 10:47] LABS: PTT 31.9 sec (22.9-36.1); Prothrombin Time 13.2 sec (12.0-14.7)
[2020-07-07 10:49] LABS: Actual Bicarbonate (HCO3a) 18.9 mEq/L (22-28); Analyzer IN Cardio ER; Base Excess (BEa) -6.8 mEq/L (-2.0 to +3.0); CO2 Tension 38.8 mmHg (35.0-45.0); Calcium, Ionized (arterial) 1.24 mmol/L (1.12-1.30); Carboxyhemoglobin (COHb) 4.4 gm% (0.0-3.0); Hemoglobin (Hb) 15.5 g/dL (14.0-18.0); O2 Tension (PaO2), arterial 71.3 mmHg (80.0-100.0); Potassium - ABG Lab 4.76 mmol/L (3.70-5.30); pH, Arterial 7.31 (7.35-7.45)
[2020-07-07 10:51] LABS: Puncture Site RRA
[2020-07-07] MEDS ORDERED: Enoxaparin Sodium 100 MG/ML SYRINGE ONE (11:11)
[2020-07-07] MEDS ORDERED: Enoxaparin Sodium 80 MG/0.8 ML SYRINGE ONE (11:11)
[2020-07-07] MEDS ORDERED: Ondansetron PF 4 MG/2 ML Vial IVP PRN (11:44)
[2020-07-07] MEDS ORDERED: Senokot S 8.6-50 MG TAB PO PRN (11:44)
[2020-07-07] MEDS ORDERED: Dextrose 5% in Water 1,000 ML IV PRN (11:48)
[2020-07-07] MEDS ORDERED: Dextrose 50% Abboject 50 ML SYRINGE SLOW IVP PRN (11:48)
--- NOTE | 2020-07-07 11:49 | ULT ---
ULTRASOUND DOPPLER DUPLEX VENOUS RIGHT LOWER EXTREMITY: DATE: 07/07/2020 HISTORY: 50-year-old male with left lower extremity swelling. According to career development facilitator's note, she gave verbal report to nurse Fco. Dr. Garvin's note at 11:36 AM 07/07/2020 indicates that he discussed the findings by telephone with Dr Lm Kruger. TECHNIQUE: Grayscale, color-flow, and spectral analysis, of the right common femoral, profunda femoral, greater saphenous, femoral, popliteal, and posterior tibial, veins. FINDINGS: There is thrombus expanding the left common femoral, profunda femoral, greater saphenous, femoral, an d popliteal, veins. There is decreased blood flow demonstrated in the popliteal vein. Little or no blood flow is demonstrated in the rest of the veins. The posterior tibial vein is not visualized, pos sibly because of overlying soft tissue edema. IMPRESSION: Positive for acute, occlusive deep venous thrombosis of the entire left lower extremity deep venous s ystem.
[2020-07-07 12:10] LABS: #Basophils 0.1 thou/uL (0.0-0.2); #Eosinphils 0.2 thou/uL (0.0-0.7); #Lymphocytes 1.4 thou/uL (1.20-3.40); #Monocytes 0.8 thou/uL (0.11-0.59); #Neutrophils 7.7 thou/uL (1.40-6.50); %Basophils 0.5 % (0.0-1.0); %Lymphocytes 13.4 % (21.0-51.0); %Monocytes 7.5 % (0.0-10.0); %Neutrophils 76.6 % (42.0-75.0); Hemoglobin 15.1 g/dL (14.0-18.0); Mean Corpuscular HGB CONC 33.2 g/dL (32.0-36.0); Mean Corpuscular Hemoglobin 30.7 pg (27.0-31.0); Mean Corpuscular Volume 92.7 fL (78.0-98.0); Mean Platelet Volume 8.5 fL (7.4-10.4); Platelet Count 103 thou/uL (130-400); RBC Distribution Width 13.2 % (11.5-14.5); White Blood Cell (WBC) Count 10.1 thou/uL (4.8-10.8)
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
[2020-07-07 12:24] LABS: ALT (SGPT) 12 U/L (8-55); AST (SGOT) 12 U/L (5-34); Albumin 3.3 g/dL (3.5-5.0); Alkaline Phosphatase 60 U/L (40-110); Anion Gap 14 mmol/L (10-20); BUN (Urea Nitrogen) 46 mg/dL (8.9-20.6); Bilirubin, Total 0.6 mg/dL (0.2-1.2); Calc. Creatinine Clearance 0 mL/min (70-130); Calcium 8.7 mg/dL (7.8-10.44); Carbon Dioxide 19 mmol/L (22-29); Chloride 106 mmol/L (98-107); Estimated GFR-MDRD 36; Globulin 3.8 g/dL (2.4-3.5); Glucose 265 mg/dL (70-105); Potassium 4.9 mmol/L (3.5-5.1); Protein, Total 7.1 g/dL (6.0-8.3); Sodium 134 mmol/L (136-145)
[2020-07-07] MEDS ORDERED: Iopamidol 370 76% 100 ML VIAL ONE (13:31)
[2020-07-07] MEDS: Nicotine 21 MG PATCH TD SCH (14:30)
[2020-07-07 15:05] LABS: Troponin I 0.042 ng/mL (< 0.028)
--- NOTE | 2020-07-07 18:38 | CON ---
DATE OF CONSULTATION: HISTORY OF PRESENT ILLNESS: This is a 50-year-old gentleman with a history of DVT about 2 years ago involving the left femoral vein. The patient was maintained on Xarelto until about 6 months ago when this was stopped. He noticed some pain in his left leg about 2 weeks ago with no increase in swelling and then developed some right-sided pleuritic chest pain, prompting a visit to the hospital. He was found to have evidence of pulmonary embolus to the right lower lobe and probably some pulmonary infarction accounting for his pleurisy. Venous ultrasound demonstrated progression of the deep vein thrombosis in his left common femoral vein distally. PAST MEDICAL HISTORY: 1. The patient has a pertinent past medical history with congestive heart failure, followed by Dr. Naik, with poor EF, having had placement of an AICD by Dr. Enciso. 2. He has hypertension. 3. Diabetes mellitus. 4. Sleep apnea. 5. Dyslipidemia. 6. Morbid obesity. 7. He smokes about a pack of cigarettes a day. PAST SURGICAL HISTORY: Includes: 1. Cholecystectomy. 2. AICD placement. SOCIAL HISTORY: The patient is unemployed. He lives alone. As mentioned, he smokes. PHYSICAL EXAMINATION: GENERAL: Alert and cooperative gentleman, sitting on the side of the bed. Weight 363, he appears to be about 5 feet 5 inches, no height is available.. NECK: No venous distention can be observed, although this is probably at least partly related to his neck size. He has no carotid bruits. LUNGS: Clear to auscultation anteriorly and I do not appreciate a rub on the right side. CARDIAC: Distant heart sounds. ABDOMEN: Quite obese. EXTREMITIES: He has bilateral hyperpigmentation in the lower calf and ankle area, consistent with chronic venous insufficiency. He has no edema at this time. He has a weak, but present dorsalis pedis pulses bilaterally. DIAGNOSTIC STUDIES: I have reviewed his CT scan, demonstrating essentially occlusion of the pulmonary arteries to the right lower lobe. He also has calcification in his coronary arteries. Chest x-ray shows no cardiac enlargement with infiltrative process present in the right basilar area, AICD in place. ASSESSMENT AND PLAN: 1. At this time, the patient is on twice a day Lovenox. Cardiac echo is pending, and I agree with continued anticoagulation and switching to oral anticoagulation in the next 48 hours. I do not think there is an indication at this time for vena caval filter and there is no surgical indication for intervention for either his pulmonary embolus or his left lower extremity deep vein thrombosis. 2. The patient has chronic kidney disease with a creatinine of about 2. 3. The patient has diabetes mellitus and recent hemoglobin A1c is not present, but about one month ago it was 12.6, suggesting poor to absent control. 4. Congestive heart failure, coronary artery disease. 5. Continued smoking. DISCUSSION: I have counseled the patient on multiple risk factor modifications and I suspect he has been counseled before without much change in his behavior. Continue anticoagulation. At this time, no indication for vascular intervention. Job ID: [id number]
[2020-07-07 19:35] VITALS: BMI 51.7
[2020-07-07] MEDS: HYDROcodone/Acetaminophen 5/325 mg Tablet PO PRN (20:27)
[2020-07-07] MEDS: Enoxaparin Sodium 80 MG/0.8 ML SYRINGE SC SCH (20:30)
[2020-07-07] MEDS ORDERED: HumaLOG 300 UNITS/3 ML VIAL SC PRN (21:12)
[2020-07-08 04:37] LABS: Hemoglobin A1c Greater than 14.0 % (4.0-6.0)
[2020-07-08] MEDS: HYDROcodone/Acetaminophen 5/325 mg Tablet PO PRN (05:28)
[2020-07-08] MEDS: Insulin Regular 300 UNITS/3 ML VIAL SC PRN ×3 (06:44→17:57)
[2020-07-08] MEDS: Enoxaparin Sodium 80 MG/0.8 ML SYRINGE SC SCH (08:46)
[2020-07-08] MEDS ORDERED: Non-Formulary Item 1 EACH (Levemir Flexpen [Levemir Flexpen] 35 UNITS) SC SCH (09:00)
[2020-07-08] MEDS: Acetaminophen 325 MG TAB PO PRN ×3 (09:05→21:27)
[2020-07-08] MEDS: Gabapentin 300 MG CAP PO SCH ×2 (09:05→21:27)
[2020-07-08] MEDS: Carvedilol 25 MG TAB PO SCH ×2 (09:05→21:27)
[2020-07-08] MEDS: Furosemide 40 MG TAB PO SCH (09:06)
[2020-07-08] MEDS: Spironolactone 25 MG TAB PO SCH ×2 (09:12→21:28)
[2020-07-08 13:25] LABS: SARS-CoV-2 MS2 Positive; SARS-CoV-2 N Gene Negative; SARS-CoV-2 S Gene Negative; SARS-CoV-2 by NAA Not Detected (NotDetected); SARS-CoV-2 orf1ab Negative
[2020-07-08] MEDS: Nicotine 21 MG PATCH TD SCH (15:02)
[2020-07-08] MEDS: Gabapentin 400 MG CAP PO SCH (16:06)
--- NOTE | 2020-07-08 16:17 | PDOC.HOSPP ---
- Subjective Subjective: Seen examined at bedside. He still have some scapular pain. He is using his CPAP overnight. He is satting 97%. Blood pressure stable. Appreciate input from vascular surgery - Objective Vital Signs & Weight: Vital Signs (12 hours) Temp Pulse Pulse Pulse Resp BP BP 07/08/20 13:42 66 73 129/83 140/93 H 07/08/20 11:34 97.6 F 99 19 07/08/20 09:00 98.6 F 66 16 BP BP Pulse Ox Pulse Ox Pulse Ox 07/08/20 13:42 94 L 97 07/08/20 11:34 118/74 89 L 07/08/20 09:00 123/69 92 L Weight Weight 370 lb 6.4 oz I&O: 07/07/20 07/08/20 07/09/20 06:59 06:59 06:59 Intake Total 1080 Output Total 740 200 Balance 340 -200 Result Diagrams: 07/07/20 11:57 07/07/20 11:57 Additional Labs: Accuchecks 07/08/20 07/08/20 07/07/20 10:47 06:08 20:49 POC Glucose 309 H 343 H 310 H Hospitalist ROS - Medication Medications: Active Medications Generic Name Dose Route Start Last Admin Trade Name Freq PRN Reason Stop Dose Admin Acetaminophen 650 mg 07/07/20 11:44 07/08/20 16:05 Tylenol PO 650 mg Q4H PRN Administration Headache/Fever/Mild Pain (1-3) Hydrocodone Bitart/Acetaminophen 1 tab 07/07/20 11:44 07/08/20 05:28 Chicken 5/325 PO 1 tab Q4H PRN Administration Moderate Pain (4-6) Carvedilol 25 mg 07/08/20 09:00 07/08/20 09:05 Coreg PO 25 mg BID SALVATORE Administration Furosemide 40 mg 07/08/20 09:00 07/08/20 09:06 Lasix PO 40 mg DAILY SALVATORE Administration Gabapentin 600 mg 07/08/20 09:00 07/08/20 09:05 Neurontin PO 600 mg BID SALVATORE Administration Gabapentin 1,200 mg 07/08/20 15:00 07/08/20 16:06 Neurontin PO 1,200 mg 1500 SALVATORE Administration Insulin Human Lispro 0 units 07/07/20 21:12 07/07/20 21:58 Humalog SC 4 unit .BEDTIME SLIDING SC PRN Administration Bedtime Correctional Scale Insulin Human Regular 0 units 07/07/20 11:48 07/08/20 11:12 Humulin R SC 11 unit .AGGRESSIVE SLIDING PRN Administration Aggressive Correctional Scale Nicotine 21 mg 07/07/20 12:00 07/08/20 15:02 Nicoderm Patch TD Not Given Q24HR SALVAOTRE Spironolactone 25 mg 07/08/20 09:00 07/08/20 09:12 Aldactone PO 25 mg BID SALVATORE Administration - Exam General Appearance: NAD, awake alert Eye: PERRL, anicteric sclera ENT: normocephalic atraumatic Neck: supple, symmetric, no JVD Heart: RRR, no murmur Respiratory: CTAB, no wheezes Gastrointestinal: soft, non-tender Extremities: no cyanosis, no clubbing, no edema Skin: normal turgor, no lesions Neurological: cranial nerve grossly intact, normal sensation to touch, no new deficit Musculoskeletal: normal tone, normal strength Psychiatric: normal affect, A&O x 3 Hosp A/P - Plan ASSESSMENT and plan #Right-sided lower pulmonary embolus #Acute left lower extremity DVT #Congestive heart failure with reduced EF, status post pacemaker/AICD placement , compensated. #Chronic CKD stage III #Diabetes type 2-uncontrolled A1c 14 #Hypertension blood pressure stable #Morbid obesity with BMI of 51.7 #Tobacco dependent disorder #Obstructive sleep apnea on CPAP 07/08/2020 Patient remained hemodynamically stable. He still have some scapular pain secondary to above. Patient has been tolerating Lovenox subcutaneous. Hemoglobin remained stable. Appreciate input from vascular, no intervention is required. Since this is his second episode. Patient will require lifelong anticoagulation. I suspect his PE is secondary to recent road trip, as well as sedentary lifestyle given his morbid obesity. He also had uncontrolled diabetes type 2, with a A1c of greater than 14. Diabetic education consult. Patient report that he has not been taking his insulin since he was on vacation. I have discussed the compliance issue. Patient verbal understanding. Plan today will transition him to oral anti-collation with Xarelto 15 mg twice daily x21 days then 20 mg daily thereafter. Possible side effect discussed with the patient in detail. Patient has been take this medication before until this was discontinued about 6 months ago.
[2020-07-08] MEDS ORDERED: Insulin Glargine 35 UNITS in Pre-Filled Syringe 1 EACH SC SCH (21:00)
[2020-07-08] MEDS ORDERED: Atorvastatin Calcium 20 MG TAB PO SCH (21:00)
[2020-07-08] MEDS: Rivaroxaban 15 MG TAB PO SCH (21:28)
[2020-07-09] MEDS: Insulin Regular 300 UNITS/3 ML VIAL SC PRN ×2 (06:19→10:56)
[2020-07-09] MEDS: HYDROcodone/Acetaminophen 5/325 mg Tablet PO PRN (06:37)
[2020-07-09 07:37] VITALS: TEMP 99
[2020-07-09] MEDS: Gabapentin 300 MG CAP PO SCH (07:39)
[2020-07-09] MEDS: Furosemide 40 MG TAB PO SCH (07:39)
[2020-07-09] MEDS: Carvedilol 25 MG TAB PO SCH (07:39)
[2020-07-09] MEDS: Rivaroxaban 15 MG TAB PO SCH (07:39)
[2020-07-09] MEDS: Spironolactone 25 MG TAB PO SCH (07:40)
[2020-07-09 08:51] LABS: Hemoglobin 13.6 g/dL (14.0-18.0); Platelet Count 125 thou/uL (130-400)
[2020-07-09] MEDS ORDERED: Alogliptin 25 MG TAB PO SCH (09:00)
[2020-07-09] MEDS ORDERED: Insulin Glargine 35 UNITS in Pre-Filled Syringe 1 EACH SC SCH (09:00)
[2020-07-09] MEDS: Nicotine 21 MG PATCH TD SCH (11:19)
[2020-07-09 12:41] VITALS: BP 114/71
--- NOTE | 2020-07-09 13:47 | DIS ---
DATE OF ADMISSION: 07/07/2020 DATE OF DISCHARGE: 07/09/2020 PRIMARY CARE PHYSICIAN: Peterson Bazzi Artesian, DO DISCHARGE DIAGNOSES: 1. Right-sided pulmonary embolus. 2. Acute left lower extremity deep venous thrombosis. 3. Congestive heart failure with reduced ejection fraction, status post pacemaker/AICD placement, compensated. 4. Chronic kidney disease, stage 3. 5. Uncontrolled diabetes with hemoglobin A1c of 14. 6. Hypertension, essential. 7. Morbid obesity with BMI of 51.7 kg/m2. 8. Tobacco dependence disorders. 9. Obstructive sleep apnea, on CPAP. CONSULTATION: Vascular Surgery, Dr. Wood. IMAGING STUDIES: 1. Venous Doppler positive for occlusive deep venous thrombosis of the entire left lower extremity. 2. CTA positive for right-sided pulmonary embolism, large thrombus involving entire right lower lobe pulmonary arteries and all its branches. Nonspecific mediastinal and hilar lymphadenopathy. 3. 2D echo, left ventricular size moderately increased, EF of 25% to 30%. LABORATORY DATA: COVID PCR was negative. WBC; hemoglobin platelet 125. D-dimer 3.99. INR 1.0. Chemistry; sodium 134, potassium 4.9, chloride is 106, carbon dioxide 19, anion gap 14, BUN 46, creatinine is 1.97. HISTORY OF PRESENT ILLNESS AND BRIEF HOSPITAL COURSE: The patient is a pleasant 50-year-old gentleman, who has multiple comorbidities including congestive heart failure, systolic dysfunction with status post AICD device, uncontrolled diabetes, history of lower extremity DVT about two years ago, was taken off Xarelto about 6 months ago, morbid obesity, tobacco dependence disorders, who was recently on a road trip return from [place]. He presented to ED with complaints of left flank pain that radiated to his back and left shoulders. Workup in the ED showed that he had a large right pulmonary embolism. Venous Dopplers positive for lower extremity DVT. The patient was subsequently admitted to hospice service. He was started on Lovenox therapeutic dose. The patient tolerated it well. Given his extensive clot in his lower extremity as well as a large size of his PE, he does have some mild elevated troponin, but there is no evidence of right heart strain. Cardiovascular was consulted to see if any intervention is necessary. The patient was seen by Dr. Wood. No surgical intervention is recommended. Continue with anticoagulation. Since this is his 2nd episode of VT, the patient will need to stay on blood thinners for lifelong. It is likely provoked from his recent trip from [place]. He also is morbidly obese, and also had sedentary lifestyle, smoker, and uncontrolled diabetes. Likely, those are the risk factors of his recurrent DVT/PE. At this time, he has been transitioned to oral anticoagulation with Xarelto, which he was on that in the past. He appeared to be tolerated it well. His symptoms improved. The patient is stable to discharge home with family. ACTIVITY: As tolerated. DIET: Cardiac diet, low-sodium diabetic diet. DISPOSITION: The patient is stable to discharge home with family. FOLLOWUP CARE: The patient advised to follow up with his PCP in 1 to 2 weeks, follow up with his miller head assistant wet process for ongoing management of his heart failures. PHYSICAL EXAMINATION: VITAL SIGNS: Temperature is 99, blood pressure 118/68. He is saturating 93% on room air, pulse 72, respiratory rate 18. GENERAL APPEARANCE: The patient is morbidly obese, he is not in acute distress. He is alert and oriented x3. HEENT: Normocephalic, atraumatic. Mucous membranes moist. NECK: Supple. No lymphadenopathy. No JVD. CARDIOVASCULAR: Regular rate and rhythm. S1 and S2 noted. No murmur. PULMONOLOGY: Clear to auscultation bilaterally. ABDOMEN: Soft, obese. Positive bowel sounds. EXTREMITIES: Chronic venous stasis dermatitis, 1+ edema. NEUROLOGY: Cranial nerves 2 through 12 grossly intact. No focal weakness. PSYCHIATRIC: The patient is alert and oriented x3 with normal affect. DISCHARGE MEDICATIONS: 1. Gabapentin 600 mg b.i.d. 2. Hydralazine 25 mg b.i.d. 3. Levemir 35 units b.i.d. 4. Victoza 1.2 subcu daily. 5. Simvastatin 40 mg p.o. daily. 6. Januvia 100 mg p.o. daily. 7. Aldactone 25 mg b.i.d. 8. Aspirin 81 mg p.o. daily. 9. Carvedilol 25 mg b.i.d. 10. Lasix 40 mg p.o. daily. 11. Xarelto, he will be taking 15 mg tablets b.i.d. for 21 days, then 20 mg p.o. tablet daily thereafter. DISCHARGE INSTRUCTIONS: The patient was advised to take his medication as prescribed. He will need to follow up with his PCP for aggressive risk factors management including weight reduction, tightly control of his diabetes. The patient also advised to follow up with his miller head assistant wet process for ongoing management of his heart failure. Return to ED if his symptoms recurs or worsen. Thank you for allowing us to participate in this patient's care. Discharge Time Spent: 35 min Job ID: [id number] GISELLE
[2020-07-09] MEDS: Gabapentin 400 MG CAP PO SCH (14:32)
== END 2020-07-09 17:28 | disposition home or self-care (01) | DRG 299 ==
LOC: ERS 07:17 → 2NO 13:43
PROVIDERS: ADMIT Family Medicine; ATTEND Family Medicine
DX: I82.402 Acute embolism and thrombosis of unspecified deep veins of left lower extremity (principal); I26.99 Other pulmonary embolism without acute cor pulmonale; I50.22 Chronic systolic (congestive) heart failure; Z68.43 Body mass index [BMI] 50.0-59.9, adult; I13.0 Hypertensive heart and chronic kidney disease with heart failure and stage 1 through stage 4 chronic kidney disease, or unspecified chronic kidney disease; R10.9 Unspecified abdominal pain; G47.33 Obstructive sleep apnea (adult) (pediatric); E78.5 Hyperlipidemia, unspecified; N18.3 Chronic kidney disease, stage 3 (moderate); E66.01 Morbid (severe) obesity due to excess calories; E11.22 Type 2 diabetes mellitus with diabetic chronic kidney disease; F17.200 Nicotine dependence, unspecified, uncomplicated; I25.10 Atherosclerotic heart disease of native coronary artery without angina pectoris; E11.65 Type 2 diabetes mellitus with hyperglycemia; Z90.49 Acquired absence of other specified parts of digestive tract; Z95.810 Presence of automatic (implantable) cardiac defibrillator
CPT/HCPCS: 36415; 36416; 71045; 71275; 80053; 82553; 82565; 82805; 83036; 83880; 84484; 85014; 85018; 85025; 85049; 85379; 85610; 85730; 87635; 93005; 93306; 96372; 96374; J1650; J1815; J1885; Q9967; U0003

== ENCOUNTER 2021-11-14 09:16 | Outpatient (CLI) | payer MEDICARE, MEDICAID | END 2021-11-14 09:17 | disposition home or self-care (01) | LOC: BICULT 09:16 | PROVIDERS: ATTEND Internal Medicine Nephrology | DX: N18.4 Chronic kidney disease, stage 4 (severe) (principal); N13.30 Unspecified hydronephrosis | CPT/HCPCS: 36415; 76770; 80053; 80061; 81001; 83970; 84100; 85025 ==

== ENCOUNTER 2022-01-19 06:37 | Day surgery (SDC) | payer MEDICARE, MEDICAID ==
[2022-01-13 12:41] VITALS: BMI 53.7
[2022-01-19] MEDS ORDERED: PROPOFOL 200 MG/20 ML VIAL ONE (08:50)
[2022-01-19] MEDS ORDERED: Glycopyrrolate 0.2 MG/ML 5 ML SYRINGE ONE (08:50)
[2022-01-19] MEDS ORDERED: Lidocaine 1% PF 5 ML VIAL ONE (08:50)
== END 2022-01-19 11:20 | disposition home or self-care (01) ==
LOC: SDC 06:37
PROVIDERS: ATTEND Internal Medicine
PROC: 0DBH8ZX Excision of Cecum, Via Natural or Artificial Opening Endoscopic, Diagnostic (ICD-10-PCS; principal; 2022-01-19)
PROC: 0DBL8ZX Excision of Transverse Colon, Via Natural or Artificial Opening Endoscopic, Diagnostic (ICD-10-PCS; 2022-01-19)
PROC: 0DBN8ZX Excision of Sigmoid Colon, Via Natural or Artificial Opening Endoscopic, Diagnostic (ICD-10-PCS; 2022-01-19)
PROC: 0DBP8ZX Excision of Rectum, Via Natural or Artificial Opening Endoscopic, Diagnostic (ICD-10-PCS; 2022-01-19)
PROC: 0DBM8ZX Excision of Descending Colon, Via Natural or Artificial Opening Endoscopic, Diagnostic (ICD-10-PCS; 2022-01-19)
DX: Z12.11 Encounter for screening for malignant neoplasm of colon (principal); D12.0 Benign neoplasm of cecum; D12.3 Benign neoplasm of transverse colon; D12.4 Benign neoplasm of descending colon; D12.5 Benign neoplasm of sigmoid colon; K62.1 Rectal polyp; K64.8 Other hemorrhoids; I13.0 Hypertensive heart and chronic kidney disease with heart failure and stage 1 through stage 4 chronic kidney disease, or unspecified chronic kidney disease; E11.22 Type 2 diabetes mellitus with diabetic chronic kidney disease; N18.9 Chronic kidney disease, unspecified; I50.9 Heart failure, unspecified; I25.10 Atherosclerotic heart disease of native coronary artery without angina pectoris; E78.00 Pure hypercholesterolemia, unspecified; G47.30 Sleep apnea, unspecified; F17.200 Nicotine dependence, unspecified, uncomplicated; Z79.01 Long term (current) use of anticoagulants; Z79.4 Long term (current) use of insulin; Z79.82 Long term (current) use of aspirin; Z79.84 Long term (current) use of oral hypoglycemic drugs; Z79.899 Other long term (current) drug therapy; Z88.1 Allergy status to other antibiotic agents; Z95.810 Presence of automatic (implantable) cardiac defibrillator
CPT/HCPCS: 45385; 82962; C1776; 36416; 88305; J2704

== ENCOUNTER 2022-09-24 11:15 | Emergency (ER) | payer MEDICARE, OTHER, MEDICAID ==
[2022-09-24] MEDS ORDERED: Boostrix 0.5 ML (Tdap) VIAL (>/=7 yrs of age) ONE (12:11)
== END 2022-09-24 12:25 | disposition home or self-care (01) ==
LOC: ERS 11:15
DX: L03.116 Cellulitis of left lower limb (principal); I11.0 Hypertensive heart disease with heart failure; I50.9 Heart failure, unspecified; E11.9 Type 2 diabetes mellitus without complications; F17.210 Nicotine dependence, cigarettes, uncomplicated; Z23 Encounter for immunization; Z79.899 Other long term (current) drug therapy; Z79.82 Long term (current) use of aspirin; Z79.4 Long term (current) use of insulin
CPT/HCPCS: 90471; 90715

== ENCOUNTER 2022-10-24 05:45 | Day surgery (SDC) | payer MEDICARE, OTHER, MEDICAID ==
[2022-10-23 10:15] VITALS: BMI 48.4
[2022-10-24] MEDS ORDERED: Lidocaine 1% (PF) 30 ML VIAL ONE (06:20)
[2022-10-24] MEDS ORDERED: Midazolam HCl 2 mg/2 ml Vial ONE (06:33)
[2022-10-24] MEDS ORDERED: FENTANYL 50 MCG/ML 1 ML VIAL ONE (06:33)
[2022-10-24] MEDS ORDERED: Protamine Sulfate 50 MG/5 ML VIAL ONE (06:33)
[2022-10-24] MEDS ORDERED: Nitroglycerin 100MG/250ML BOT 0 ML ONE (06:34)
[2022-10-24] MEDS ORDERED: Heparin 10,000 UNITS/ 10 ML VIAL ONE (07:15)
[2022-10-24 07:55] LABS: Cholesterol 160 mg/dl (< 200 Desired); HDL Cholesterol 23 mg/dL (>60 Neg Risk); Triglycerides 588 mg/dL (Less than 150)
[2022-10-24] MEDS ORDERED: Iopamidol 370 76% 100 ML VIAL ONE (09:52)
== END 2022-10-24 15:07 | disposition home or self-care (01) ==
LOC: SDC 05:45
PROVIDERS: ATTEND Internal Medicine Cardiovascular Disease
PROC: 4A023N7 Measurement of Cardiac Sampling and Pressure, Left Heart, Percutaneous Approach (ICD-10-PCS; principal; 2022-10-24)
PROC: B2111ZZ Fluoroscopy of Multiple Coronary Arteries using Low Osmolar Contrast (ICD-10-PCS; 2022-10-24)
DX: I25.10 Atherosclerotic heart disease of native coronary artery without angina pectoris (principal); I42.8 Other cardiomyopathies; E78.00 Pure hypercholesterolemia, unspecified; I13.0 Hypertensive heart and chronic kidney disease with heart failure and stage 1 through stage 4 chronic kidney disease, or unspecified chronic kidney disease; E11.22 Type 2 diabetes mellitus with diabetic chronic kidney disease; N18.30 Chronic kidney disease, stage 3 unspecified; I50.20 Unspecified systolic (congestive) heart failure; G47.33 Obstructive sleep apnea (adult) (pediatric); F17.210 Nicotine dependence, cigarettes, uncomplicated; E66.01 Morbid (severe) obesity due to excess calories; Z68.42 Body mass index [BMI] 45.0-49.9, adult; Z86.711 Personal history of pulmonary embolism; Z86.718 Personal history of other venous thrombosis and embolism; Z79.01 Long term (current) use of anticoagulants; Z79.4 Long term (current) use of insulin; Z79.82 Long term (current) use of aspirin; Z79.85 Long-term (current) use of injectable non-insulin antidiabetic drugs; Z79.899 Other long term (current) drug therapy; Z88.1 Allergy status to other antibiotic agents; Z95.810 Presence of automatic (implantable) cardiac defibrillator
CPT/HCPCS: 80061; 85347; 93454; C1769 ×2; J3010; 99152; J1644; J2001; J2250; J2720; Q9967

== ENCOUNTER 2025-08-19 15:05 | Emergency (ER) | payer OTHER, MEDICAID | END 2025-08-19 17:25 | disposition home or self-care (01) | LOC: ERS 15:05 | DX: S93.401A Sprain of unspecified ligament of right ankle, initial encounter (principal); S83.91XA Sprain of unspecified site of right knee, initial encounter; S90.01XA Contusion of right ankle, initial encounter; I11.0 Hypertensive heart disease with heart failure; I50.9 Heart failure, unspecified; E11.9 Type 2 diabetes mellitus without complications; F17.210 Nicotine dependence, cigarettes, uncomplicated; W19.XXXA Unspecified fall, initial encounter | CPT/HCPCS: 99283 ==

== ENCOUNTER 2025-09-02 22:24 | Inpatient (IN) | payer OTHER, MEDICAID ==
[2025-09-02 23:46] LABS: #Basophils 0.04 10x3/uL (0.0-0.2); #Eosinophils 0.28 10x3/uL (0.0-0.7); #Monocytes 0.51 10x3/uL (0.11-0.59); #Neutrophils 5.36 10x3/uL (1.40-6.50); %Basophils 0.5 % (0.0-1.0); %Eosinophils 3.8 % (0.0-10.0); %Lymphocytes 15.2 % (21.0-51.0); %Monocytes 7.0 % (0.0-10.0); %Neutrophils 73.2 % (42.0-75.0); Hematocrit 44.5 % (42.0-52.0); Hemoglobin 13.9 g/dL (14.0-18.0); Mean Corpuscular Hemoglobin 29.6 pg (27.0-31.0); Mean Corpuscular Volume 94.9 fL (78.0-98.0); Platelet Count 130 10x3/uL (130-400); Red Blood Cell (RBC) Count 4.69 mill/uL (4.70-6.10); White Blood Cell (WBC) Count 7.32 10x3/uL (4.8-10.8)
[2025-09-03 00:10] LABS: ALT (SGPT) 18 U/L (Less than 45); AST (SGOT) 24 U/L (11-34); Albumin 3.0 g/dL (3.1-4.5); Alkaline Phosphatase 82 U/L (40-110); Anion Gap 14 mmol/L (10-20); BUN (Urea Nitrogen) 34 mg/dL (8.4-25.7); Bilirubin, Total 0.5 mg/dL (0.3-1.2); Calc. Creatinine Clearance 0 mL/min (70-130); Calcium 8.9 mg/dL (7.8-10.44); Carbon Dioxide 23 mmol/L (22-29); Chloride 108 mmol/L (98-107); Globulin 4.2 g/dL (2.4-3.5); Glucose 151 mg/dL (70-105); Potassium 4.8 mmol/L (3.5-5.1); Sodium 140 mmol/L (136-145)
[2025-09-03] MEDS ORDERED: Furosemide 20 MG (2 mL) VIAL ONE (03:18)
[2025-09-03 03:30] LABS: INR-International Normal Ratio 1.4; PTT 42.0 sec (22.9-36.1); Prothrombin Time 16.9 sec (12.0-14.7)
[2025-09-03] MEDS ORDERED: Acetaminophen 325 MG TAB PO PRN (04:51)
[2025-09-03] MEDS ORDERED: Ondansetron PF 4 MG/2 ML Vial IVP PRN (04:51)
[2025-09-03] MEDS ORDERED: Glucagon 1 MG/ML KIT IM PRN (04:56)
[2025-09-03] MEDS ORDERED: Dextrose 50% Abboject 50 ML SYRINGE SLOW IVP PRN (04:56)
[2025-09-03] MEDS: Heparin 10,000 UNITS/ 10 ML VIAL SLOW IVP SCH (05:09)
[2025-09-03 06:29] LABS: #Basophils 0.06 10x3/uL (0.0-0.2); #Eosinophils 0.31 10x3/uL (0.0-0.7); #Monocytes 0.58 10x3/uL (0.11-0.59); #Neutrophils 5.15 10x3/uL (1.40-6.50); %Basophils 0.8 % (0.0-1.0); %Eosinophils 4.0 % (0.0-10.0); %Lymphocytes 20.5 % (21.0-51.0); %Monocytes 7.5 % (0.0-10.0); %Neutrophils 66.8 % (42.0-75.0); Hematocrit 42.8 % (42.0-52.0); Hemoglobin 12.9 g/dL (14.0-18.0); Mean Corpuscular Hemoglobin 30.0 pg (27.0-31.0); Mean Corpuscular Volume 99.5 fL (78.0-98.0); Platelet Count 122 10x3/uL (130-400); Red Blood Cell (RBC) Count 4.30 mill/uL (4.70-6.10); White Blood Cell (WBC) Count 7.71 10x3/uL (4.8-10.8)
[2025-09-03 06:42] LABS: Anion Gap 16 mmol/L (10-20); BUN (Urea Nitrogen) 34 mg/dL (8.4-25.7); Calc. Creatinine Clearance 80 mL/min (70-130); Calcium 8.7 mg/dL (7.8-10.44); Carbon Dioxide 18 mmol/L (22-29); Chloride 109 mmol/L (98-107); Glucose 175 mg/dL (70-105); Magnesium 1.7 mg/dL (1.6-2.6); Potassium 4.8 mmol/L (3.5-5.1); Sodium 138 mmol/L (136-145)
[2025-09-03] MEDS: Gabapentin 400 MG CAP PO SCH (09:03)
[2025-09-03] MEDS: Aspirin 81 mg Enteric Coated Tablet PO SCH (09:04)
[2025-09-03] MEDS: Carvedilol 25 MG TAB PO SCH (09:05)
[2025-09-03] MEDS: Spironolactone 25 MG TAB PO SCH (09:05)
[2025-09-03 11:25] LABS: PTT 225.8 sec (22.9-36.1)
[2025-09-03] MEDS: FLU (Fluarix Triv) 25-26 (6MOS UP)/PF 45 MCG/0.5 ML Syringe IM ONE (12:55)
[2025-09-04 04:50] LABS: #Basophils 0.04 10x3/uL (0.0-0.2); #Eosinophils 0.25 10x3/uL (0.0-0.7); #Monocytes 0.45 10x3/uL (0.11-0.59); #Neutrophils 4.47 10x3/uL (1.40-6.50); %Basophils 0.6 % (0.0-1.0); %Eosinophils 3.8 % (0.0-10.0); %Lymphocytes 20.6 % (21.0-51.0); %Monocytes 6.8 % (0.0-10.0); %Neutrophils 67.9 % (42.0-75.0); Hematocrit 43.3 % (42.0-52.0); Hemoglobin 13.6 g/dL (14.0-18.0); Mean Corpuscular Hemoglobin 30.2 pg (27.0-31.0); Mean Corpuscular Volume 96.0 fL (78.0-98.0); Platelet Count 128 10x3/uL (130-400); Red Blood Cell (RBC) Count 4.51 mill/uL (4.70-6.10); White Blood Cell (WBC) Count 6.59 10x3/uL (4.8-10.8)
[2025-09-04 05:05] VITALS: BMI 47.2
[2025-09-04 05:16] LABS: Anion Gap 13 mmol/L (10-20); BUN (Urea Nitrogen) 41 mg/dL (8.4-25.7); Calc. Creatinine Clearance 85 mL/min (70-130); Calcium 9.1 mg/dL (7.8-10.44); Carbon Dioxide 24 mmol/L (22-29); Chloride 107 mmol/L (98-107); Glucose 144 mg/dL (70-105); Magnesium 1.9 mg/dL (1.6-2.6); Potassium 4.9 mmol/L (3.5-5.1); Sodium 139 mmol/L (136-145)
[2025-09-04] MEDS: Apixaban 5 MG TAB PO SCH (15:57)
[2025-09-04 16:02] VITALS: BP 114/69; TEMP 97.5
[2025-09-04] MEDS ORDERED: Apixaban 5 MG TAB PO SCH (23:59)
[2025-09-05] MEDS ORDERED: Apixaban 5 MG TAB PO SCH (09:00)
[2025-09-11] MEDS ORDERED: Apixaban 5 MG TAB PO SCH (09:00)
== END 2025-09-04 19:01 | disposition home or self-care (01) | DRG 291 ==
LOC: ERS 22:24 → 2NO 09-03 03:40
PROVIDERS: ADMIT Internal Medicine; ATTEND Student in an Organized Health Care Education/Training Program
DX: I13.0 Hypertensive heart and chronic kidney disease with heart failure and stage 1 through stage 4 chronic kidney disease, or unspecified chronic kidney disease (principal); I50.31 Acute diastolic (congestive) heart failure; I82.502 Chronic embolism and thrombosis of unspecified deep veins of left lower extremity; F17.210 Nicotine dependence, cigarettes, uncomplicated; N18.30 Chronic kidney disease, stage 3 unspecified; G47.33 Obstructive sleep apnea (adult) (pediatric); E66.01 Morbid (severe) obesity due to excess calories; E11.22 Type 2 diabetes mellitus with diabetic chronic kidney disease; Z79.01 Long term (current) use of anticoagulants; Z90.49 Acquired absence of other specified parts of digestive tract
CPT/HCPCS: 36415; 36416; 71045; 78580; 80048; 80053; 83735; 83880; 84484; 85025; 85610; 85730; 90656; 93005; 93306; 93970; 94760; 96374; A9540; J1644; J1815; J1940

== ENCOUNTER 2025-09-04 22:58 | Inpatient (IN) | payer OTHER, MEDICAID ==
[~2025-09-04 22:58] MED LIST: Iopamidol 370 76% 100 ML VIAL ONE
[2025-09-04 23:27] LABS: Actual Bicarbonate (HCO3v) 22.7 mEq/L (22-28); Analyzer IN Cardio ER; Base Excess -5.6 mEq/L (-2.0 to +3.0); Calcium, Ionized (venous) 1.17 mmol/L (1.16-1.32); Chloride (VBG) 106 mmol/L (98-106); Hematocrit-VBG 46 % (42.0-52.0); Hemoglobin (Hb) 15.8 g/dL (13.1-17.2); Potassium (VBG) 5.44 mmol/L (3.70-5.30); Sodium 139 mmol/L (133-146)
[2025-09-04 23:35] LABS: #Basophils 0.05 10x3/uL (0.0-0.2); #Eosinophils 0.27 10x3/uL (0.0-0.7); #Monocytes 0.54 10x3/uL (0.11-0.59); #Neutrophils 5.88 10x3/uL (1.40-6.50); %Basophils 0.6 % (0.0-1.0); %Eosinophils 3.2 % (0.0-10.0); %Lymphocytes 20.5 % (21.0-51.0); %Monocytes 6.3 % (0.0-10.0); %Neutrophils 69.0 % (42.0-75.0); Hematocrit 47.2 % (42.0-52.0); Hemoglobin 14.5 g/dL (14.0-18.0); Mean Corpuscular Hemoglobin 29.5 pg (27.0-31.0); Mean Corpuscular Volume 95.9 fL (78.0-98.0); Platelet Count 117 10x3/uL (130-400); Red Blood Cell (RBC) Count 4.92 mill/uL (4.70-6.10); White Blood Cell (WBC) Count 8.52 10x3/uL (4.8-10.8)
[2025-09-04 23:46] LABS: INR-International Normal Ratio 1.5; Prothrombin Time 17.9 sec (12.0-14.7)
[2025-09-04 23:54] LABS: ALT (SGPT) 14 U/L (Less than 45); AST (SGOT) 20 U/L (11-34); Albumin 3.1 g/dL (3.1-4.5); Alkaline Phosphatase 87 U/L (40-110); Anion Gap 12 mmol/L (10-20); BUN (Urea Nitrogen) 39 mg/dL (8.4-25.7); Bilirubin, Total 0.4 mg/dL (0.3-1.2); Calc. Creatinine Clearance 0 mL/min (70-130); Calcium 9.0 mg/dL (7.8-10.44); Carbon Dioxide 23 mmol/L (22-29); Chloride 107 mmol/L (98-107); Globulin 4.5 g/dL (2.4-3.5); Glucose 190 mg/dL (70-105); Potassium 5.4 mmol/L (3.5-5.1); Sodium 137 mmol/L (136-145)
[2025-09-05 00:09] LABS: PTT Greater than 250.0 sec (22.9-36.1)
[2025-09-05] MEDS ORDERED: Ondansetron PF 4 MG/2 ML Vial IVP PRN (04:27)
[2025-09-05] MEDS ORDERED: Acetaminophen 325 MG TAB PO PRN (04:27)
[2025-09-05] MEDS ORDERED: Calcium Carbonate 500 MG ChewTAB PO PRN (04:27)
[2025-09-05] MEDS ORDERED: Dextrose 50% Abboject 50 ML SYRINGE SLOW IVP PRN (05:12)
[2025-09-05] MEDS ORDERED: Glucagon 1 MG/ML KIT IM PRN (05:12)
[2025-09-05 06:35] LABS: PTT 139.3 sec (22.9-36.1)
[2025-09-05] MEDS ORDERED: Furosemide 40 MG (4 mL) VIAL ONE (06:39)
[2025-09-05] MEDS: Furosemide 40 MG (4 mL) VIAL SLOW IVP SCH (07:01)
[2025-09-05 08:11] LABS: Anion Gap 13 mmol/L (10-20); BUN (Urea Nitrogen) 43 mg/dL (8.4-25.7); Calc. Creatinine Clearance 0 mL/min (70-130); Calcium 8.6 mg/dL (7.8-10.44); Carbon Dioxide 23 mmol/L (22-29); Chloride 108 mmol/L (98-107); Glucose 128 mg/dL (70-105); Potassium 5.8 mmol/L (3.5-5.1); Sodium 138 mmol/L (136-145)
[2025-09-05] MEDS: Spironolactone 25 MG TAB PO SCH (09:51)
[2025-09-05] MEDS: Sodium Polystyrene Sulfonate 15 GM (60 mL) BOT PO SCH (09:56)
[2025-09-05] MEDS: Dapagliflozin Propanediol 10 MG TAB PO SCH (09:57)
[2025-09-05] MEDS: Aspirin 81 mg Enteric Coated Tablet PO SCH (09:58)
[2025-09-05] MEDS: Carvedilol 25 MG TAB PO SCH (10:57)
[2025-09-05] MEDS: Apixaban 5 MG TAB PO SCH ×2 (11:46→20:52)
[2025-09-05] MEDS: FLU (Fluarix Triv) 25-26 (6MOS UP)/PF 45 MCG/0.5 ML Syringe IM ONE (13:12)
[2025-09-05] MEDS: Carvedilol 6.25 MG TAB PO SCH (17:23)
[2025-09-05] MEDS: Gabapentin 400 MG CAP PO SCH (19:46)
[2025-09-05 21:53] LABS: Anion Gap 19 mmol/L (10-20); BUN (Urea Nitrogen) 45 mg/dL (8.4-25.7); Calc. Creatinine Clearance 90 mL/min (70-130); Calcium 9.1 mg/dL (7.8-10.44); Carbon Dioxide 24 mmol/L (22-29); Chloride 107 mmol/L (98-107); Glucose 142 mg/dL (70-105); Potassium 4.9 mmol/L (3.5-5.1); Sodium 145 mmol/L (136-145)
[2025-09-06 04:48] LABS: #Basophils 0.05 10x3/uL (0.0-0.2); #Eosinophils 0.21 10x3/uL (0.0-0.7); #Monocytes 0.53 10x3/uL (0.11-0.59); #Neutrophils 4.74 10x3/uL (1.40-6.50); %Basophils 0.8 % (0.0-1.0); %Eosinophils 3.2 % (0.0-10.0); %Lymphocytes 16.1 % (21.0-51.0); %Monocytes 8.0 % (0.0-10.0); %Neutrophils 71.4 % (42.0-75.0); Hematocrit 45.9 % (42.0-52.0); Hemoglobin 12.4 g/dL (14.0-18.0); Mean Corpuscular Hemoglobin 30.8 pg (27.0-31.0); Mean Corpuscular Volume 114.2 fL (78.0-98.0); Platelet Count 119 10x3/uL (130-400); Red Blood Cell (RBC) Count 4.02 mill/uL (4.70-6.10); White Blood Cell (WBC) Count 6.63 10x3/uL (4.8-10.8)
[2025-09-06 05:06] LABS: ALT (SGPT) 14 U/L (Less than 45); AST (SGOT) 19 U/L (11-34); Albumin 2.9 g/dL (3.1-4.5); Alkaline Phosphatase 70 U/L (40-110); Anion Gap 13 mmol/L (10-20); BUN (Urea Nitrogen) 42 mg/dL (8.4-25.7); Bilirubin, Total 0.6 mg/dL (0.3-1.2); Calc. Creatinine Clearance 87 mL/min (70-130); Calcium 9.0 mg/dL (7.8-10.44); Carbon Dioxide 27 mmol/L (22-29); Chloride 105 mmol/L (98-107); Globulin 3.9 g/dL (2.4-3.5); Glucose 212 mg/dL (70-105); Potassium 4.8 mmol/L (3.5-5.1); Sodium 140 mmol/L (136-145)
[2025-09-07 04:55] LABS: #Basophils 0.04 10x3/uL (0.0-0.2); #Eosinophils 0.23 10x3/uL (0.0-0.7); #Monocytes 0.50 10x3/uL (0.11-0.59); #Neutrophils 4.09 10x3/uL (1.40-6.50); %Basophils 0.6 % (0.0-1.0); %Eosinophils 3.7 % (0.0-10.0); %Lymphocytes 21.0 % (21.0-51.0); %Monocytes 8.1 % (0.0-10.0); %Neutrophils 66.1 % (42.0-75.0); Hematocrit 38.6 % (42.0-52.0); Hemoglobin 12.4 g/dL (14.0-18.0); Mean Corpuscular Hemoglobin 30.3 pg (27.0-31.0); Mean Corpuscular Volume 94.4 fL (78.0-98.0); Platelet Count 119 10x3/uL (130-400); Red Blood Cell (RBC) Count 4.09 mill/uL (4.70-6.10); White Blood Cell (WBC) Count 6.19 10x3/uL (4.8-10.8)
[2025-09-07 05:11] LABS: Anion Gap 16 mmol/L (10-20); BUN (Urea Nitrogen) 49 mg/dL (8.4-25.7); Calc. Creatinine Clearance 73 mL/min (70-130); Calcium 9.0 mg/dL (7.8-10.44); Carbon Dioxide 23 mmol/L (22-29); Chloride 105 mmol/L (98-107); Glucose 128 mg/dL (70-105); Potassium 4.8 mmol/L (3.5-5.1); Sodium 139 mmol/L (136-145)
[2025-09-08 04:25] LABS: Anion Gap 16 mmol/L (10-20); BUN (Urea Nitrogen) 52 mg/dL (8.4-25.7); Calc. Creatinine Clearance 69 mL/min (70-130); Calcium 8.9 mg/dL (7.8-10.44); Carbon Dioxide 24 mmol/L (22-29); Chloride 102 mmol/L (98-107); Glucose 169 mg/dL (70-105); Potassium 5.0 mmol/L (3.5-5.1); Sodium 137 mmol/L (136-145)
[2025-09-08 11:51] VITALS: BP 105/66; TEMP 97.8
== END 2025-09-08 11:50 | disposition home or self-care (01) | DRG 291 ==
LOC: ERS 22:58 → ERHOLD 09-05 03:40 → 2NO 09-05 09:23
PROVIDERS: ADMIT Student in an Organized Health Care Education/Training Program; ATTEND Family Medicine
PROC: 3E02340 Introduction of Influenza Vaccine into Muscle, Percutaneous Approach (ICD-10-PCS; principal; 2025-09-05)
PROC: 5A09357 Assistance with Respiratory Ventilation, Less than 24 Consecutive Hours, Continuous Positive Airway Pressure (ICD-10-PCS; 2025-09-05)
DX: I13.0 Hypertensive heart and chronic kidney disease with heart failure and stage 1 through stage 4 chronic kidney disease, or unspecified chronic kidney disease (principal); I50.23 Acute on chronic systolic (congestive) heart failure; J96.01 Acute respiratory failure with hypoxia; Z68.42 Body mass index [BMI] 45.0-49.9, adult; N17.9 Acute kidney failure, unspecified; I82.4Z2 Acute embolism and thrombosis of unspecified deep veins of left distal lower extremity; G47.33 Obstructive sleep apnea (adult) (pediatric); F17.210 Nicotine dependence, cigarettes, uncomplicated; E11.22 Type 2 diabetes mellitus with diabetic chronic kidney disease; N18.30 Chronic kidney disease, stage 3 unspecified; E66.01 Morbid (severe) obesity due to excess calories; I25.10 Atherosclerotic heart disease of native coronary artery without angina pectoris; E11.51 Type 2 diabetes mellitus with diabetic peripheral angiopathy without gangrene; I42.8 Other cardiomyopathies; E87.5 Hyperkalemia; Z23 Encounter for immunization; Z79.01 Long term (current) use of anticoagulants; Z98.890 Other specified postprocedural states; Z90.49 Acquired absence of other specified parts of digestive tract; Z95.810 Presence of automatic (implantable) cardiac defibrillator; Z79.899 Other long term (current) drug therapy; Z79.82 Long term (current) use of aspirin; Z88.1 Allergy status to other antibiotic agents; Z71.6 Tobacco abuse counseling
CPT/HCPCS: 36415; 36416; 71045; 71275; 80048; 80053; 82805; 83880; 84484; 85025; 85610; 85730; 93005; 93798; 94660; 96374; 96375; J1815; J1940; Q9967